=== PATIENT | female | born 1950 | race Caucasian/White ===

== ENCOUNTER 2016-09-23 14:37 | Emergency (ER) | payer OTHER ==
[2016-09-23 15:01] VITALS: BP 149/99; PULSE 103; TEMP 99.2; BMI 28.3
[2016-09-23] MEDS ORDERED: ONDANSETRON 4 MG/2 ML VIAL IVPB ONE (15:05)
[2016-09-23] MEDS ORDERED: ACETAMINOPHEN 1000 MG/100 ML VIAL (NON FORMULARY) IVPB ONE (15:06)
--- NOTE | 2016-09-23 15:07 | PDOC ---
History of Present Illness - General History Source: Patient Exam Limitations: No Limitations <Malachi Muro - Last Filed: 09/23/16 15:17> - History of Present Illness Initial Comments: 09/23/16 15:16 General History Source: Patient Exam Limitations: No Limitations - History of Present Illness Initial Comments: 09/23/16 15:13 The patient is a 66 year old female with a significant past medical history of Asthma, HTN, HLD, sinus polyps, who presents to the ED with fever, nonproductive cough, runny nose, nausea, vomiting. headache, and muscle aches. Patient states her symptoms first began yesterday evening. Patient denies diarrhea, hematochezia. She denies blood in the vomit. Patient denies dysuria, frequency, urgency. Patient denies any sick contacts. Patient has not had the flu shot this year. Patient was put on sinus antibiotics on September 17 by her PCP. She has only taken two doses so far, with the last one being yesterday, and does not think that her symptoms are related to this Remainder of the review of systems is negative <Malachi Muro - Last Filed: 09/23/16 15:14> <Margareth Polo - Last Filed: 09/23/16 18:13> - General Chief Complaint: Nausea/Vomiting Stated Complaint: VOMITING Time Seen by Provider: 09/23/16 14:51 Past History <Malachi Muro - Last Filed: 09/23/16 15:17> - Past Medical History Asthma: Yes HTN: Yes (BORDERLINE) Hypercholesterolemia: Yes (BORDERLINE) - Surgical History Cholecystectomy: Yes - Psycho/Social/Smoking Cessation Hx Anxiety: No Suicidal Ideation: No Smoking Status: No Smoking History: Never smoked Have you smoked in the past 12 months: No Number of Cigarettes Smoked Daily: 0 Information on smoking cessation initiated: No Hx Alcohol Use: No Drug/Substance Use Hx: No <Margareth Polo - Last Filed: 09/23/16 18:13> - Past Medical History Allergies/Adverse Reactions: Allergies Allergy/AdvReac Type Severity Reaction Status Date / Time No Known Allergies Allergy Verified 09/23/16 14:52 Home Medications: Ambulatory Orders Doxycycline Hyclate 100 mg PO DAILY 09/23/16 Ibuprofen [Advil -] 400 mg PO PRN PRN 09/23/16 Metformin HCl [Metformin HCl ER] 500 mg PO BID 09/23/16 Ondansetron [Zofran Odt -] 4 mg SL TID PRN #14 od.tablet 09/23/16 Review of Systems - Review of Systems Able to Perform ROS?: Yes Comments:: 09/23/16 15:14 12 point review of systems is as per history of present illness and otherwise negative <Malachi Muro - Last Filed: 09/23/16 15:17> *Physical Exam - Vital Signs Last Vital Signs Temp Pulse Resp BP Pulse Ox 99.2 F 103 H 18 149/99 96 09/23/16 14:38 09/23/16 14:38 09/23/16 14:38 09/23/16 14:38 09/23/16 14:38 <Malachi Muro - Last Filed: 09/23/16 15:17> - Vital Signs Last Vital Signs Temp Pulse Resp BP Pulse Ox 99.2 F 103 H 18 149/99 96 09/23/16 14:38 09/23/16 14:38 09/23/16 14:38 09/23/16 14:38 09/23/16 14:38 - Physical Exam Comments: 09/23/16 15:18 Physical exam Last Vital Signs Temp Pulse Resp BP Pulse Ox 99.2 F 103 H 18 149/99 96 09/23/16 14:38 09/23/16 14:38 09/23/16 14:38 09/23/16 14:38 09/23/16 14:38 GENERAL: The patient is awake, alert, and fully oriented, and in no apparent distress. HEAD: Normal with no signs of trauma. EYES: sclera anicteric, conjunctiva are normal. ENT: There is mild right maxillary sinus tenderness Patient has a runny nose with clear nasal discharge, throat is mildly erythematous without exudate. NECK: Normal range of motion, supple without lymphadenopathy, LUNGS: Breath sounds equal, clear to auscultation bilaterally. No wheezes, and no crackles. HEART: Regular rate and rhythm, normal S1 and S2 without murmur, rub or gallop. ABDOMEN: Soft, nontender, normoactive bowel sounds. No guarding, no rebound. No masses appreciated. There is mild upper midepigastric tenderness to palpation without guarding or rebound No other abdominal tenderness is noted There is no hepatosplenomegaly EXTREMITIES: Normal range of motion, no edema. No clubbing or cyanosis. No cords, erythema, or tenderness. NEUROLOGICAL: Cranial nerves II through XII grossly intact. Normal speech, normal gait. PSYCH: Normal mood, normal affect. SKIN: Warm, Dry, normal turgor, no rashes or lesions noted. <Margareth Polo - Last Filed: 09/23/16 18:13> ED Treatment Course - LABORATORY CBC & Chemistry Diagram: 09/23/16 15:21 09/23/16 15:21 <Margareth Polo - Last Filed: 09/23/16 18:13> Medical Decision Making - Medical Decision Making 09/23/16 15:21 66-year-old female with an influenza-like illness, with nausea vomiting, myalgias, low-grade fever, sore throat, nonproductive cough, and runny nose She also does have a history of sinus polyps, and was put on doxycycline on by her primary care doctor, but is not been taking it, and is only taken 2 doses over the past week She did not have the flu shot this year Will hydrate, control symptoms and reevaluate 09/23/16 18:08 Laboratory Results - last 24 hr 09/23/16 09/23/16 09/23/16 15:21 15:21 15:21 WBC 6.1 RBC 5.07 Hgb 14.2 Hct 42.0 MCV 82.9 MCHC 33.7 RDW 12.8 Plt Count 116 L MPV 9.5 Sodium 133 L Potassium 3.8 Chloride 101 Carbon Dioxide 24 Anion Gap 8 BUN 17 Creatinine 0.8 Creat Clearance w eGFR > 60 Random Glucose 186 H Calcium 9.3 Magnesium 1.7 L Total Bilirubin 0.9 AST 39 ALT 32 Alkaline Phosphatase 93 H Total Protein 7.3 Albumin 4.3 Lipase Urine Color Yellow Urine Appearance Clear Urine pH 5.0 Ur Specific [place] >= 1.030 H Urine Protein 2+ H Urine Glucose (UA) Negative Urine Ketones Trace Urine Blood Trace-intact Urine Nitrite Negative Urine Bilirubin Negative Urine Urobilinogen 0.2 e.u/dl Ur Leukocyte Esterase Negative Urine RBC 2-5 Urine WBC 1-3 Ur Epithelial Cells Few Amorphous Urates Few Urine Bacteria Few 09/23/16 15:21 WBC RBC Hgb Hct MCV MCHC RDW Plt Count MPV Sodium Potassium Chloride Carbon Dioxide Anion Gap BUN Creatinine Creat Clearance w eGFR Random Glucose Calcium Magnesium Total Bilirubin AST ALT Alkaline Phosphatase Total Protein Albumin Lipase 25 Urine Color Urine Appearance Urine pH Ur Specific [place] Urine Protein Urine Glucose (UA) Urine Ketones Urine Blood Urine Nitrite Urine Bilirubin Urine Urobilinogen Ur Leukocyte Esterase Urine RBC Urine WBC Ur Epithelial Cells Amorphous Urates Urine Bacteria Influenza A and B- negative Patient feeling much better after 2 L of normal saline and meds Tolerating clear liquids and crackers Magnesium minimally low-will replete orally by eating <Margareth Polo - Last Filed: 09/23/16 18:13> *DC/Admit/Observation/Transfer - Attestations Scribe Attestion: 09/23/16 15:14 Documentation prepared by Malachi Muro, acting as medical data analyst for Margareth Polo MD. <Malachi Muro - Last Filed: 09/23/16 15:17> <Margareth Polo - Last Filed: 09/23/16 18:13> Diagnosis at time of Disposition: Influenza-like illness, Vomiting - Discharge Dispostion Disposition: HOME Condition at time of disposition: Improved - Patient Instructions Printed Discharge Instructions: DI for Vomiting -- Adult Additional Instructions: Increase fluid intake Clear liquids for the next 24 hours-Pedialyte, Gatorade, broth, water ice, tea, increase fluid intake Then gradually increase diet as tolerated Zofran if needed for nausea and vomiting-one tablet under your tongue every 6-8 hours Tylenol or Motrin for discomfort Followup with your primary care physician in 24-48 hours Return immediately if you worsen in any way Take your medications as directed
[2016-09-23] MEDS ORDERED: SODIUM CHLORIDE 1,000 ML IV SCH ×2 (15:15→16:45)
[2016-09-23] MEDS ORDERED: ONDANSETRON 4 MG/2 ML VIAL ONE (15:26)
[2016-09-23] MEDS ORDERED: ACETAMINOPHEN INJECTION 100 ML IVPB ONE (15:26)
[2016-09-23 16:25] LABS: MCH 27.9 pg (25.7-33.7); MCHC 33.7 g/dl (32.0-36.0); MEAN CELL VOLUME 82.9 fl (80-96); MEAN PLT VOLUME 9.5 fl (7.5-11.1); PLATELET COUNT 116 K/MM3 (134-434); RDW 12.8 % (11.6-15.6); WHITE BLOOD COUNT 6.1 K/mm3 (4.0-10.0)
[2016-09-23 16:28] LABS: URINE APPEARANCE Clear; URINE BILIRUBIN Negative (NEGATIVE); URINE BLOOD Trace-intact (NEGATIVE); URINE GLUCOSE (UA) Negative (NEGATIVE); URINE KETONE Trace (NEGATIVE); URINE LEUK ESTERASE Negative (NEGATIVE); URINE NITRITE Negative (NEGATIVE); URINE UROBILINOGEN 0.2 E.U/dl (0.2-1.0)
[2016-09-23 16:29] LABS: URINE COLOR YELLOW; URINE PROTEIN 2+ (NEGATIVE)
[2016-09-23 16:41] LABS: ALBUMIN 4.3 g/dl (3.5-5.0); ALK PHOS 93 U/L (32-92); ANION GAP 8 (8-16); BILIRUBIN,TOTAL 0.9 mg/dl (0.2-1.0); CALCIUM 9.3 mg/dl (8.4-10.2); CO2 24 mmol/L (22-28); CREATININE 0.8 mg/dl (0.6-1.3); GLUCOSE,RANDOM 186 mg/dl (74-106); MAGNESIUM 1.7 mg/dL (1.8-2.4); SGOT/AST 39 U/L (10-42); SGPT/ALT 32 U/L (10-40); TOT PROT 7.3 g/dl (6.4-8.3)
[2016-09-23 16:42] LABS: URINE BACTERIA FEW /hpf (NEGATIVE)
== END 2016-09-23 18:18 | disposition home or self-care (01) ==
LOC: FER 14:37
PROC: 3E033NZ Introduction of Analgesics, Hypnotics, Sedatives into Peripheral Vein, Percutaneous Approach (ICD-10-PCS; principal; 2016-09-23)
PROC: 3E033GC Introduction of Other Therapeutic Substance into Peripheral Vein, Percutaneous Approach (ICD-10-PCS; 2016-09-23)
DX: J11.1 Influenza due to unidentified influenza virus with other respiratory manifestations (principal); R11.10 Vomiting, unspecified
CPT/HCPCS: 36415; 80053; 81003; 81015; 83690; 83735; 85027; 87804; 99283-25

== ENCOUNTER 2018-05-19 10:57 | Emergency (ER) | payer OTHER ==
[2018-05-19 11:03] VITALS: BP 164/84; PULSE 95; TEMP 98.4; BMI 27.8
[2018-05-19] MEDS ORDERED: ALBUTEROL SO4 2.5/IPRATROPIUM 0.5 INH SOL 3 ML VIAL.NEB. NEB ONE ×4 (11:16→11:57)
--- NOTE | 2018-05-19 11:17 | PDOC ---
History of Present Illness - General Chief Complaint: Respiratory Stated Complaint: COUGH & COLD SX Time Seen by Provider: 05/19/18 11:06 History Source: Patient (Patient walked in along with her daughter) Past History - Travel Traveled outside of the country in the last 30 days: No Close contact w/someone who was outside of country & ill: No - Past Medical History Allergies/Adverse Reactions: Allergies Allergy/AdvReac Type Severity Reaction Status Date / Time No Known Allergies Allergy Verified 05/19/18 10:59 Home Medications: Ambulatory Orders Metformin HCl [Metformin HCl ER] 500 mg PO BID 09/23/16 Azithromycin 250 mg PO ASDIR 05/19/18 Guaifenesin Dm [Robitussin Dm -] 10 ml PO Q4H PRN 05/19/18 Prednisone 10 mg PO DAILY #30 tab.ds.pk 05/19/18 Asthma: Yes COPD: No Diabetes: Yes HTN: Yes (BORDERLINE) Hypercholesterolemia: Yes (BORDERLINE) - Surgical History Cholecystectomy: Yes - Suicide/Smoking/Psychosocial Hx Smoking Status: No Smoking History: Never smoked Have you smoked in the past 12 months: No Number of Cigarettes Smoked Daily: 0 Information on smoking cessation initiated: No Hx Alcohol Use: No Drug/Substance Use Hx: No *Physical Exam - Vital Signs Last Vital Signs Temp Pulse Resp BP Pulse Ox 98.4 F 95 H 18 164/84 97 05/19/18 10:57 05/19/18 10:57 05/19/18 10:57 05/19/18 10:57 05/19/18 10:57 *DC/Admit/Observation/Transfer Diagnosis at time of Disposition: Asthma attack Qualifiers: Asthma severity: moderate Asthma persistence: persistent Qualified Code(s): J45.41 - Moderate persistent asthma with (acute) exacerbation - Discharge Dispostion Disposition: HOME Condition at time of disposition: Improved Decision to Admit order: No - Prescriptions Prescriptions: Prednisone 10 mg PO DAILY #30 tab.ds.pk - Referrals - Patient Instructions Printed Discharge Instructions: DI for Asthma -- Adult Additional Instructions: Fluids Inhalation therapy as needed Humidifier in the bedroom Take medication as prescribed - Post Discharge Activity
[2018-05-19] MEDS ORDERED: predniSONE 20 MG TABLET (UD) PO ONE (11:55)
[2018-05-19] MEDS ORDERED: predniSONE 20 MG TABLET (UD) ONE (11:56)
[2018-05-19] MEDS ORDERED: PRESCRIPTION PAD 1 EACH EACH NR ONE (12:27)
== END 2018-05-19 12:25 | disposition home or self-care (01) ==
LOC: FER 10:57
PROC: 3E0F7GC Introduction of Other Therapeutic Substance into Respiratory Tract, Via Natural or Artificial Opening (ICD-10-PCS; principal; 2018-05-19)
DX: J45.41 Moderate persistent asthma with (acute) exacerbation (principal); E11.9 Type 2 diabetes mellitus without complications; Z79.84 Long term (current) use of oral hypoglycemic drugs
CPT/HCPCS: 71046-TC-FY; 99283-25

== ENCOUNTER → 2019-03-02 | Emergency (ER) | payer OTHER, BC ==
[~2019-03-02] MED LIST: IBUPROFEN 600 MG TABLET (FP) PO ONE
[2019-03-02 13:55] VITALS: BP 142/81; PULSE 79; TEMP 98.4; BMI 27.2
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
== END | disposition home or self-care (01) ==
LOC: FER 13:41
DX: S20.219A Contusion of unspecified front wall of thorax, initial encounter (principal); V43.52XA Car driver injured in collision with other type car in traffic accident, initial encounter; Y93.89 Activity, other specified; Y92.410 Unspecified street and highway as the place of occurrence of the external cause; I10 Essential (primary) hypertension
CPT/HCPCS: 71101-TC-LT-FY; 71250-TC; 99283-25

== ENCOUNTER 2019-09-11 13:09 | Emergency (ER) | payer OTHER ==
[2019-09-11 13:23] VITALS: TEMP 97.8; BMI 27.8
--- NOTE | 2019-09-11 13:57 | PDOC ---
History of Present Illness - General Chief Complaint: Pain Stated Complaint: ABD. PAIN Time Seen by Provider: 09/11/19 13:55 History Source: Patient Exam Limitations: No Limitations - History of Present Illness Initial Comments: 83-year-old female with past medical history of hypertension, hyperlipidemia, diabetes, asthma, cholecystectomy, two sections presented to the emergency department for epigastric pain for four days. Patient reported her pain is intermittent, radiates around her left side, aggravated by eating, no alleviating factors. She reported some loose stools, but denied billy watery diarrhea. She admitted to nausea. She denied chest pain, shortness of breath, vomiting, lightheadedness, syncope, fever, abdominal distention, dysuria, blood in stool. Pt reported her son after he received IV contrast, so she does not want to receive it. ROS General: denied fever, chills, generalized weakness. HEENT: denied sore throat, rhinorrhea, ear pain. Cardiovascular: denied chest pain, palpitations, syncope, diaphoresis. Respiratory: denied shortness of breath, cough, sputum production, hemoptysis. Gastrointestinal: admitted to abdominal pain, nausea. denied vomiting, diarrhea, constipation, blood in stool. Genitourinary: denied dysuria, increased urinary frequency, hematuria, urinary incontinence, flank pain. Back: denied back pain. Musculoskeletal: denied joint pain, muscle pain, joint swelling. Neurological: denied headache, dizziness, numbness, tingling, weakness. Integumentary: denied rash, laceration, abrasion. Hematologic/Lymphatic: denied bruising or bleeding. PE Constitutional: Well-nourished, Well-developed, appearing stated age. HEENT: head is normocephalic, atraumatic. EOMI. PERRLA. Neck: supple. Full ROM. Cardiovascular: regular heart rhythm. Normal S1 and S2. no murmurs. no pericardial friction rub. Respiratory: clear to auscultation bilaterally. no crackles, rhonchi or wheezing. no stridor. Gastrointestinal: soft, flat. tender to epigastrium/LUQ. phan negative. normal bowel sounds. no rebound, guarding, or masses. Extremities: peripheral pulses intact and equal. no lower extremity edema noted. Neurological: CN 2-12 grossly intact. moves all four extremities. Psych: awake, alert, oriented x3. follows commands. answers questions appropriately. Past History - Past Medical History Allergies/Adverse Reactions: Allergies Allergy/AdvReac Type Severity Reaction Status Date / Time No Known Allergies Allergy Verified 03/02/19 13:43 Home Medications: Ambulatory Orders metFORMIN HCL [Metformin HCl ER] 500 mg PO BID 09/23/16 Acetaminophen [Tylenol -] 1,000 mg PO PRN PRN 03/02/19 Albuterol Sulfate Inhaler - [Ventolin Hfa Inhaler -] 1 - 2 inh PO PRN PRN 03/02/19 Ibuprofen [Motrin -] 400 mg PO TID PRN #90 tablet MDD 3 03/02/19 Cephalexin Monohydrate [Keflex -] 500 mg PO BID 7 Days #14 capsule 09/11/19 Famotidine [Pepcid -] 20 mg PO BID #28 tablet 09/11/19 Ondansetron [Zofran Odt -] 4 mg SL TID #9 od.tablet 09/11/19 - Psycho Social/Smoking Cessation Hx Smoking Status: No Smoking History: Never smoked Have you smoked in the past 12 months: No Number of Cigarettes Smoked Daily: 0 Information on smoking cessation initiated: No Hx Alcohol Use: No Drug/Substance Use Hx: No *Physical Exam - Vital Signs Last Vital Signs Temp Pulse Resp BP Pulse Ox 97.8 F 84 17 121/67 98 09/11/19 13:20 09/11/19 13:20 09/11/19 13:20 09/11/19 13:20 09/11/19 13:20 ED Treatment Course - LABORATORY CBC & Chemistry Diagram: 09/11/19 14:10 09/11/19 14:10 Medical Decision Making - Medical Decision Making 69 year old female with above PMH presented to ED for epigastric pain x4 days. Initial Vital Signs Temp Pulse Resp BP Pulse Ox 97.8 F 84 17 121/67 98 09/11/19 13:20 09/11/19 13:20 09/11/19 13:20 09/11/19 13:20 09/11/19 13:20 Afebrile. No tachycardia. No tachypnea. No hypotension. No hypoxia on room air. EKG performed at 1635: rate 81, regular rhythm, normal axis, normal intervals, no acute ST changes. 09/11/19 14:37 Pt refused maalox, reported it gives her diarrhea. 09/11/19 16:15 Laboratory Last Values WBC 3.9 K/mm3 (4.0-10.0) L 09/11/19 14:10 RBC 4.84 M/mm3 (3.60-5.2) 09/11/19 14:10 Hgb 13.5 GM/dL (10.7-15.3) 09/11/19 14:10 Hct 40.3 % (32.4-45.2) 09/11/19 14:10 MCV 83.1 fl (80-96) 09/11/19 14:10 MCH 27.9 pg (25.7-33.7) 09/11/19 14:10 MCHC 33.6 g/dl (32.0-36.0) 09/11/19 14:10 RDW 13.6 % (11.6-15.6) 09/11/19 14:10 Plt Count 76 K/MM3 (134-434) L 09/11/19 14:10 MPV 9.0 fl (7.5-11.1) 09/11/19 14:10 Absolute Neuts (auto) 2.3 K/mm3 (1.5-8.0) 09/11/19 14:10 Neutrophils % 59.4 % (42.8-82.8) 09/11/19 14:10 Lymphocytes % 18.2 % (8-40) 09/11/19 14:10 Monocytes % 12.7 % (3.8-10.2) H 09/11/19 14:10 Eosinophils % 8.9 % (0-4.5) H 09/11/19 14:10 Basophils % 0.8 % (0-2.0) 09/11/19 14:10 Nucleated RBC % 0 % (0-0) 09/11/19 14:10 PT with INR 11.60 SEC (9.7-13.0) 09/11/19 14:10 INR 0.98 (0.83-1.09) 09/11/19 14:10 PTT (Actin FS) 33.3 SECONDS (25.2-36.5) 09/11/19 14:10 Sodium 140 mmol/L (136-145) 09/11/19 14:10 Potassium 3.9 mmol/L (3.5-5.1) 09/11/19 14:10 Chloride 108 mmol/L (98-107) H 09/11/19 14:10 Carbon Dioxide 26 mmol/L (21-32) 09/11/19 14:10 Anion Gap 6 MMOL/L (8-16) L 09/11/19 14:10 BUN 17.9 mg/dL (7-18) 09/11/19 14:10 Creatinine 1.0 mg/dL (0.55-1.3) 09/11/19 14:10 Est GFR (CKD-EPI)AfAm 66.10 09/11/19 14:10 Est GFR (CKD-EPI)NonAf 57.03 09/11/19 14:10 Random Glucose 165 mg/dL (74-106) H 09/11/19 14:10 Lactic Acid 1.2 mmol/L (0.4-2.0) 09/11/19 14:10 Calcium 8.9 mg/dL (8.5-10.1) 09/11/19 14:10 Magnesium 2.1 mg/dL (1.8-2.4) 09/11/19 14:10 Total Bilirubin 0.4 mg/dL (0.2-1) 09/11/19 14:10 AST 31 U/L (15-37) 09/11/19 14:10 ALT 34 U/L (13-61) 09/11/19 14:10 Alkaline Phosphatase 98 U/L (45-117) 09/11/19 14:10 Troponin I < 0.02 ng/ml (0.00-0.05) 09/11/19 14:10 Total Protein 6.6 g/dl (6.4-8.2) 09/11/19 14:10 Albumin 3.3 g/dl (3.4-5.0) L 09/11/19 14:10 Lipase 164 U/L (73-393) 09/11/19 14:10 Urine Color Dk yellow 09/11/19 14:45 Urine Appearance Cloudy 09/11/19 14:45 Urine pH 5.0 (5.0-8.0) 09/11/19 14:45 Ur Specific [place] 1.032 (1.010-1.035) 09/11/19 14:45 Urine Protein 2+ (NEGATIVE) H 09/11/19 14:45 Urine Glucose (UA) Negative (NEGATIVE) 09/11/19 14:45 Urine Ketones Trace (NEGATIVE) H 09/11/19 14:45 Urine Blood Negative (NEGATIVE) 09/11/19 14:45 Urine Nitrite Negative (NEGATIVE) 09/11/19 14:45 Urine Bilirubin Negative (NEGATIVE) 09/11/19 14:45 Urine Urobilinogen 0.2 mg/dL (0.2-1.0) 09/11/19 14:45 Ur Leukocyte Esterase 1+ (NEGATIVE) H 09/11/19 14:45 Urine WBC (Auto) 13 /hpf (0-5) 09/11/19 14:45 Urine RBC (Auto) 1 /hpf (0-4) 09/11/19 14:45 Urine Casts (Auto) 22 /lpf (0-8) 09/11/19 14:45 U Pathogenic Cast Auto None /lpf (NEGATIVE) 09/11/19 14:45 U Epithel Cells (Auto) 9.8 /HPF (0-5/HPF) 09/11/19 14:45 Urine Bacteria (Auto) 24.6 /hpf (NEGATIVE) 09/11/19 14:45 Blood Type O POSITIVE 09/11/19 14:10 Antibody Screen Negative 09/11/19 14:10 No leukocytosis. No anemia. No CRISTÓBAL. No transaminitis. Troponin wnl. Lipase wnl. UA positive for UTI. -Medications ordered: Keflex 500 mg PO once Pt reported improvement of symptoms, requesting discharge. Pt prescribed pepcid. Pt advised to F/U with PCP and GI. Results explained to patient and family. Pt given GI referral. Discharge - Discharge Information Problems reviewed: Yes Clinical Impression/Diagnosis: UTI (urinary tract infection), Epigastric pain Condition: Improved Disposition: HOME - Admission No - Additional Discharge Information Prescriptions: Cephalexin Monohydrate [Keflex -] 500 mg PO BID 7 Days #14 capsule Famotidine [Pepcid -] 20 mg PO BID #28 tablet Ondansetron [Zofran Odt -] 4 mg SL TID #9 od.tablet - Follow up/Referral Referrals: Woo White MD [Staff Physician] - Jean Price DO [Staff Physician] - - Patient Discharge Instructions Patient Printed Discharge Instructions: DI for Urinary Tract Infection (UTI), DI for Gastritis, GERD Diet Additional Instructions: Follow up with your primary care doctor within 3 days regarding your ER visit. Bring all paperwork given to you today to your appointment. Your care is not complete until you follow up. Bring all medication bottles you are taking. Follow up with a pin pusher within 3 days regarding your ER visit. Bring all paperwork given to you today to your appointment. Your care is not complete until you follow up. Bring all medication bottles you are taking. I have provided you with a referral. I have prescribed you Pepcid for increased stomach acid. Take as advised on label. I have prescribed you Zofran for nausea. Take as needed every 8 hours for nausea/vomiting. It dissolves under the tongue. I have prescribed you Keflex for your urinary tract infection. Take as advised on label. Finish all pills, do not stop early. Return to the Emergency Department for increasing pain, chest pain, shortness of breath, vomiting, lightheadedness, fever, or any other new, worsening or concerning symptoms. - Post Discharge Activity
[2019-09-11] MEDS ORDERED: SODIUM CHLORIDE 1,000 ML IV STA (14:13)
[2019-09-11] MEDS ORDERED: ONDANSETRON 4 MG/2 ML VIAL IVPUSH ONE (14:13)
[2019-09-11] MEDS ORDERED: MAG HYDROX/AL HYDROX/SIMETH 30 ML UNIT-DOSE CUP PO ONE (14:13)
[2019-09-11] MEDS ORDERED: FAMOTIDINE 20 MG/50 ML IVPB 20 MG/50 ML MG IVPB ONE ×2 (14:13→14:31)
[2019-09-11 14:29] LABS: BASO % 0.8 % (0-2.0); EOS % 8.9 % (0-4.5); HEMATOCRIT 40.3 % (32.4-45.2); HEMOGLOBIN 13.5 GM/dL (10.7-15.3); LYMPH % 18.2 % (8-40); MCH 27.9 pg (25.7-33.7); MCHC 33.6 g/dl (32.0-36.0); MEAN CELL VOLUME 83.1 fl (80-96); MONO % 12.7 % (3.8-10.2); NEUT % 59.4 % (42.8-82.8); PLATELET COUNT 76 K/MM3 (134-434); RBC 4.84 M/mm3 (3.60-5.2); RDW 13.6 % (11.6-15.6); WHITE BLOOD COUNT 3.9 K/mm3 (4.0-10.0)
[2019-09-11] MEDS ORDERED: ONDANSETRON 4 MG/2 ML VIAL ONE (14:31)
[2019-09-11] MEDS ORDERED: MAG HYDROX/AL HYDROX/SIMETH 30 ML UNIT-DOSE CUP ONE (14:31)
[2019-09-11 14:42] LABS: INR 0.98 (0.83-1.09); PROTHROMBIN TIME (PATIENT) 11.6 SEC (9.7-13.0)
[2019-09-11 14:45] LABS: ACTIVATED PTT 33.3 SECONDS (25.2-36.5)
[2019-09-11 14:57] LABS: ALBUMIN 3.3 g/dl (3.4-5.0); ALK PHOS 98 U/L (45-117); ANION GAP 6 MMOL/L (8-16); BILIRUBIN,TOTAL 0.4 mg/dL (0.2-1); BLOOD UREA NITROGEN 17.9 mg/dL (7-18); CALCIUM 8.9 mg/dL (8.5-10.1); CHLORIDE 108 mmol/L (98-107); CO2 26 mmol/L (21-32); GLUCOSE,RANDOM 165 mg/dL (74-106); LIPASE 164 U/L (73-393); MAGNESIUM 2.1 mg/dL (1.8-2.4); POTASSIUM 3.9 mmol/L (3.5-5.1); SGOT/AST 31 U/L (15-37); SGPT/ALT 34 U/L (13-61); SODIUM 140 mmol/L (136-145); TOT PROT 6.6 g/dl (6.4-8.2)
[2019-09-11 15:16] LABS: EPI CELLS 9.8 /HPF (0-5/HPF); HYALINE CASTS 22 /lpf (0-8); URINE APPEARANCE CLOUDY; URINE BACTERIA 24.6 /hpf (NEGATIVE); URINE BILIRUBIN NEGATIVE (NEGATIVE); URINE COLOR DK YELLOW; URINE GLUCOSE (UA) NEGATIVE (NEGATIVE); URINE KETONE TRACE (NEGATIVE); URINE LEUK ESTERASE 1+ (NEGATIVE); URINE NITRITE NEGATIVE (NEGATIVE); URINE PROTEIN 2+ (NEGATIVE); URINE RBC 1 /hpf (0-4); URINE UROBILINOGEN 0.2 mg/dL (0.2-1.0); URINE WBC 13 /hpf (0-5)
--- NOTE | 2019-09-11 15:19 | PDOC ---
Documentation entered by Maurilio Cain SCRIBE, acting as scribe for Robina Franklin MD. Robina Franklin MD: This documentation has been prepared by the Ant grande Nirvannie, SCRIBE, under my direction and personally reviewed by me in its entirety. I confirm that the documentation accurately reflects all work, treatment, procedures, and medical decision making performed by me. Attending Attestation - Resident Resident Name: Wade Murry - ED Attending Attestation I have performed the following: I have examined & evaluated the patient, The case was reviewed & discussed with the resident, I agree w/resident's findings & plan, Exceptions are as noted - HPI HPI: 09/11/19 15:50 The patient is a 69 year old female, with a significant past medical history of hypertension, hyperlipidemia, diabetes, asthma, who presents to the emergency department with 4 days of LUQ abdominal pain with associated nausea. She states it is worse with meals. She recently completed a course of prednisone for bronchitis/asthma exacerbation. Allergies: NKDA - Physicial Exam PE: GENERAL: Awake, alert, and fully oriented, in no acute distress. Well-appearing HEAD: No signs of trauma EYES: PERRLA, EOMI, sclera anicteric, conjunctiva clear ENT: Auricles normal inspection, hearing grossly normal, nares patent, oropharynx clear without exudates. Moist mucosa NECK: Normal ROM, supple, no lymphadenopathy, JVD, or masses LUNGS: Breath sounds equal, clear to auscultation bilaterally. No wheezes, and no crackles HEART: Regular rate and rhythm, normal S1 and S2, no murmurs, rubs or gallops ABDOMEN: Soft, +epigastric/LUQ tenderness, normoactive bowel sounds. No guarding, no rebound. No masses EXTREMITIES: Normal range of motion, no edema. No clubbing or cyanosis. No cords, erythema, or tenderness NEUROLOGICAL: Cranial nerves II through XII grossly intact. Normal speech, normal gait. Motor and sensation intact SKIN: Warm, dry, normal turgor, no rashes or lesions noted. - Medical Decision Making Pt with upper abd tenderness, however, normal labs. No elevation in bilirubin. Symptoms likely related to GERD with recent steroid use. No signs of acute abdomen. Stable for DC home with outpatient f/u.
[2019-09-11] MEDS ORDERED: CEPHALEXIN MONOHYDRATE 500 MG CAPSULE (UD) PO ONE (16:14)
[2019-09-11] MEDS ORDERED: CEPHALEXIN MONOHYDRATE 500 MG CAPSULE (UD) ONE (16:23)
[2019-09-11 16:58] VITALS: BP 140/81; PULSE 92
--- NOTE | 2019-09-12 10:29 | EKG ---
Test Reason : Blood Pressure : / mmHG Vent. Rate : 081 BPM Atrial Rate : 081 BPM P-R Int : 118 ms QRS Dur : 082 ms QT Int : 384 ms P-R-T Axes : 053 006 023 degrees QTc Int : 446 ms NORMAL SINUS RHYTHM POSSIBLE ANTERIOR INFARCT , AGE UNDETERMINED ABNORMAL ECG NO PREVIOUS ECGS AVAILABLE Confirmed by Wade Donohue MD ([id number]) on 09/12/2019 10:29:33 AM Referred By: Confirmed By:Wade Donohue MD
== END 2019-09-11 16:58 | disposition home or self-care (01) ==
LOC: JER 13:09
PROC: 3E033GC Introduction of Other Therapeutic Substance into Peripheral Vein, Percutaneous Approach (ICD-10-PCS; principal; 2019-09-11)
DX: N39.0 Urinary tract infection, site not specified (principal); R10.13 Epigastric pain; I10 Essential (primary) hypertension; E78.5 Hyperlipidemia, unspecified; E11.9 Type 2 diabetes mellitus without complications; J45.909 Unspecified asthma, uncomplicated
CPT/HCPCS: 36415; 80053; 81003; 83605; 83690; 83735; 84484; 85025; 85610; 85730; 86850; 86900; 86901; 87086; 93005; 93010; 96365; 96375; 99284-25; J7030

== ENCOUNTER 2020-01-05 10:22 | Day surgery (SDC) | payer OTHER ==
--- NOTE | 2020-01-05 08:03 | HP ---
[facility] - Chief Complaint Chief Complaint: right shoulder pain - Past Medical History Allergies/Adverse Reactions: Allergies Allergy/AdvReac Type Severity Reaction Status Date / Time No Known Allergies Allergy Verified 12/30/19 15:21 - Current Medications Current Medications: Home Medications Medication Instructions Recorded metFORMIN HCL [Metformin HCl ER] 500 mg PO BID 09/23/16 Albuterol Sulfate Inhaler - 1 - 2 inh PO PRN PRN 03/02/19 [Ventolin Hfa Inhaler -] Satellite Physical Exam - Physical Examination General Appearance: Well Nourished, Well Developed, Alert & Oriented x3 ENT: Clear Lung: Normal air movement Extremities: Other (right shoulder- + ttp, decr rom, + empty can, + neer, + aldrich, nvi, MRI + rct) Neurological: Intact, Alert, Oriented Satellite Impression/Plan - Impression/Plan Impression: right shoulder rct Operative Procedure: right shoulder arthroscopy with RCR, SAD Date to be Performed: 01/05/20
[2020-01-05 11:03] VITALS: BP 170/77; PULSE 103; TEMP 98.2; BMI 27.4
== END 2020-01-05 11:30 | disposition home or self-care (01) ==
LOC: FASU 10:22
PROVIDERS: ATTEND Orthopaedic Surgery
PROC: 0LQ14ZZ Repair Right Shoulder Tendon, Percutaneous Endoscopic Approach (ICD-10-PCS; principal; 2020-01-05)
PROC: 0RNJ4ZZ Release Right Shoulder Joint, Percutaneous Endoscopic Approach (ICD-10-PCS; 2020-01-05)
DX: M75.101 Unspecified rotator cuff tear or rupture of right shoulder, not specified as traumatic (principal); Z53.09 Procedure and treatment not carried out because of other contraindication
CPT/HCPCS: 82962

== ENCOUNTER 2020-01-20 07:18 | Day surgery (SDC) | payer OTHER ==
[2020-01-19 17:42] VITALS: BMI 29.2
[2020-01-20] MEDS ORDERED: MIDAZOLAM HCL 2 MG/2 ML SINGLE DOSE VIAL ONE ×2 (07:41)
[2020-01-20] MEDS ORDERED: PROPOFOL 20 ML ONE ×2 (07:41→09:22)
--- NOTE | 2020-01-20 08:27 | HP ---
[facility] - Chief Complaint Chief Complaint: right shoulder pain - Past Medical History Allergies/Adverse Reactions: Allergies Allergy/AdvReac Type Severity Reaction Status Date / Time No Known Allergies Allergy Verified 01/20/20 08:04 - Current Medications Current Medications: Home Medications Medication Instructions Recorded metFORMIN HCL [Metformin HCl ER] 500 mg PO BID 09/23/16 Albuterol Sulfate Inhaler - 1 - 2 inh PO PRN PRN 03/02/19 [Ventolin Hfa Inhaler -] Satellite Physical Exam - Physical Examination Vital Signs: Vital Signs Period Temp Pulse Resp BP Sys/Montiel Pulse Ox Last 24 Hr 100 General Appearance: Well Nourished, Well Developed, Alert & Oriented x3 ENT: Clear Lung: Normal air movement Extremities: Other (right shoulder- + ttp, decr rom, + neer, + aldrich, + empty can, nvi, MRI + Rct) Neurological: Intact, Alert, Oriented Satellite Impression/Plan - Impression/Plan Impression: right shoulder rct Operative Procedure: right shoulder arthroscopy with RCR, SAD Date to be Performed: 01/20/20
[2020-01-20] MEDS ORDERED: ceFAZolin SODIUM 1 GM VIAL IVPB ONE (08:58)
--- NOTE | 2020-01-20 09:39 | OP ---
Operative Note - Note: Operative Date: 01/20/20 ([facility]) Pre-Operative Diagnosis: right shoulder rct Operation: right shoulder arthroscopy with RCR, SAD Post-Operative Diagnosis: Same as Pre-op Surgeon: Alber Mcgill Oncology Social Work: Mendel Mijares Anesthesiologist/ASSOCIATE PROFESSOR OF LAW: Abiodun Wakefield Anesthesia: General, Local Specimens Removed: shavings Estimated Blood Loss (mls): 5
[2020-01-20] MEDS ORDERED: ONDANSETRON 4 MG/2 ML VIAL IVPUSH PRN (09:52)
[2020-01-20] MEDS ORDERED: oxyCODONE HCL 5 MG TABLET PO PRN ×2 (09:52)
[2020-01-20] MEDS ORDERED: LACTATED RINGERS SOLUTION 1,000 ML IV SCH (10:00)
[2020-01-20 12:07] VITALS: BP 143/87; PULSE 98; TEMP 97.7
--- NOTE | 2020-01-21 09:51 | SPEC ---
DATE OF OPERATION: 01/20/2020 PREOPERATIVE DIAGNOSIS: Right rotator cuff tear. POSTOPERATIVE DIAGNOSIS: Right rotator cuff tear. PROCEDURE: Right shoulder arthroscopy, subacromial debridement, bursectomy, acromioplasty and arthroscopic right rotator cuff repair with SpeedBridge. SURGICAL ATTENDING: Alber Mcgill MD ASSOCIATE ACCOUNTANT: JELANI Sun ANESTHESIA: Regional and general. CLOSURE: A SpeedBridge for the rotator cuff and 3-0 nylon for skin. ESTIMATED BLOOD LOSS: Negligible. COMPLICATIONS: None. CONDITION: To the recovery room in stable condition. DESCRIPTION OF OPERATIVE PROCEDURE: The patient was taken to the operating room on January 20, 2020. General and regional anesthesia was administered by the anesthesiologist. IV Kefzol was administered prophylactically prior to the case. The patient was placed in the beach-chair position with all prominences well padded. The right shoulder area was prepped and draped in the usual sterile fashion. First, a diagnostic arthroscopy of the glenohumeral joint was made. Posterior portal was made 2 fingerbreadths below the acromion with a 15 blade followed by a blunt trocar. Circumferential exam of the glenohumeral joint revealed the following: Intact labrum circumferentially, intact glenoid and humeral head articular cartilage, intact biceps and biceps anchor, intact subscapularis through its insertion. Looking superiorly, there was a large rotator cuff tear. The fluid was drained from the shoulder, and the trocar was removed. The posterior trocar was redirected in the subacromial space. An accessory lateral and anterior portal were made with a 15 blade followed by a blunt trocar. The lateral portal was used as the working portal. Through this portal, an ArthroCare device was applied. This was used to debride the soft tissue in the subacromial aspect. The coracoacromial ligament was identified and detached off the anterior acromion and was visualized to drop inferiorly and was further debrided. The bone on the undersurface of the acromion was burred to the appropriate level giving appropriate height for the rotator cuff beneath. Looking inferiorly, there was a large rotator cuff tear, soft tissue encasing the rotator cuff, and the deltoid recess was debrided using ArthroCare device and the shaver. The bed on the greater tuberosity was burred to give a good bed for the double row SpeedBridge repair. A grasper was used to ensure that the rotator cuff was able to be reduced sufficiently to the greater tuberosity. The rotator cuff was freed on the bursal and the articular surface to allow more excursion of the tendon. Two anchors preloaded with FiberTape suture were placed on the articular margin, 1 more anteriorly, 1 more posteriorly. They were shuttled through the anterior portal with a grasper. Each limb was individually passed through the rotator cuff, 2 anteriorly and 2 posteriorly. One anterior limb and 1 posterior limb were delivered through the lateral portal. They were placed through the eyelet hole of the more lateral anchor, which was then malleted into place much more laterally, reducing the rotator cuff to the greater tuberosity. The swivel was then screwed into place. The sutures were then cut flush with the bone. Next, 1 anterior and 1 posterior limb that were remaining were shuttled from the anterior to the lateral portal. The sutures were placed through the eyelet hole of the anterior anchor, which was malleted on the anterior aspect of the greater tuberosity. After tensioning it, it was deployed the entire way and then screwed home giving an excellent reduction to the anterior portion of the rotator cuff. After the sutures were cut, the rotator cuff was probed and found to have good stability with excellent matting down of the rotator cuff to the greater tuberosity. The shoulder was taken through the range of motion and found to have good clearance on the undersurface of the acromion with good, solid repair. The shoulder was drained of the fluid. The portals were closed with 3-0 nylon suture. A sterile pressure dressing followed by a shoulder immobilizer was applied. The patient was awoken from anesthesia and transferred to recovery room in stable condition. No complications. Estimated blood loss negligible. Bull [id number]
--- NOTE | 2020-02-01 15:00 | PATH ---
Surgical Pathology Report Patient Name: MARIZOL BEATTY Med. Rec. #: [id number] /Age/Gender: 1950 (Age: 69) / F Account: [id number] Location: [facility] SURGICAL Taken: 01/20/2020 Received: 01/20/2020 Reported: 01/21/2020 Physicians: Alber Mcgill M.D. Specimen(s) Received RIGHT SHOULDER SHAVINGS Clinical History Right rotator cuff tear Final Diagnosis RIGHT SHOULDER SHAVINGS: FRAGMENTS OF SYNOVIAL TISSUE WITH FOCAL FIBROSIS. SEPARATE PORTIONS OF SKELETAL MUSCLE, BONE TISSUE WITH NO SIGNIFICANT PATHOLOGIC CHANGE. Electronically Signed Vanessa Car M.D. Gross Description Received in formalin, labeled "right shoulder shavings," is a 3.5 x 2.0 x 0.3 cm. aggregate of hickey-yellow soft tissue fragments. A claims representative portion is submitted in one cassette. /01/20/2020 saudi/01/20/2020
== END 2020-01-20 12:05 | disposition home or self-care (01) ==
LOC: JASU-SURG 07:18
PROVIDERS: ATTEND Orthopaedic Surgery
PROC: 0RNJ4ZZ Release Right Shoulder Joint, Percutaneous Endoscopic Approach (ICD-10-PCS; principal; 2020-01-20 09:30)
PROC: 0LQ14ZZ Repair Right Shoulder Tendon, Percutaneous Endoscopic Approach (ICD-10-PCS; 2020-01-20 09:30)
DX: M75.101 Unspecified rotator cuff tear or rupture of right shoulder, not specified as traumatic (principal); E11.9 Type 2 diabetes mellitus without complications; Z79.84 Long term (current) use of oral hypoglycemic drugs
CPT/HCPCS: 82962; 88304-TC; 94760

== ENCOUNTER 2020-01-22 20:33 | Emergency (ER) | payer OTHER ==
[2020-01-22 20:38] VITALS: BP 166/80; PULSE 86; TEMP 98; BMI 29.2
--- NOTE | 2020-01-22 20:38 | PDOC ---
Rapid Medical Evaluation Time Seen by Provider: 01/22/20 20:34 Medical Evaluation: Allergies Allergy/AdvReac Type Severity Reaction Status Date / Time No Known Allergies Allergy Verified 01/20/20 08:04 01/22/20 20:34 I have performed a brief in-person evaluation of this patient. CC: RUE swelling s/p rotator cuff repair PE: +2 radial pulse. +swelling to RUE. +ecchymosis over right deltoid Orders: nothing Patient will proceed to ED for further evaluation. Discharge Disposition - Diagnosis Swelling of right upper extremity - Referrals - Patient Instructions - Post Discharge Activity
--- NOTE | 2020-01-22 21:16 | PDOC ---
History of Present Illness - General Chief Complaint: Edema Stated Complaint: RT ARM SWOLLEN Time Seen by Provider: 01/22/20 20:34 History Source: Patient Exam Limitations: No Limitations - History of Present Illness Initial Comments: 01/22/20 21:08 69-year-old female accompanied by daughter with history of hypertension, hyperlipidemia, diabetes, asthma, [id number], status post right rotator cuff surgery by Dr. Mcgill 2 days ago presents complaining of right shoulder bruising and swelling. Also complaining of feeling nausea and dizziness after taking Percocet. Took 1 tablet of Percocet yesterday. Denies chest pain, shortness of breath, back pain, abdominal pain, fever, chills, leg pain, calf pain, urinary symptoms or any other complaints. Patient has a follow-up appointment scheduled with Dr. Mcgill next week January 28, 2020. ROS: as above PE: GENERAL: well-appearing, NAD HEAD: NCAT EYES: Pupils equal, round and reactive to light, sclera anicteric, conjunctiva clear ENT: pharynx: no erythema, no exudate, uvula midline NECK: supple CHEST: nontender RESP: clear, no w/r/r CARDIO: rrr, no m/g/r ABD: +BS, soft, nontender, non distended BACK: no midline spinal ttp, no CVAT EXTREMITIES: Surgical dressing in place, clean dry and intact, patient wearing shoulder sling, soft compartments to right upper extremity, moderate amount of ecchymosis noted, no warmth, no erythema or tenderness to palpation over right upper extremity, mild swelling noted to all digits of right hand, positive radial pulse, normal skin color NEUROLOGICAL: Normal speech, normal gait SKIN: Warm, Dry Is this a multiple visit Asthma Patient?: No Past History - Medical History Allergies/Adverse Reactions: Allergies Allergy/AdvReac Type Severity Reaction Status Date / Time No Known Allergies Allergy Verified 01/22/20 20:38 Home Medications: Ambulatory Orders metFORMIN HCL [Metformin ER Osmotic] 500 mg PO BID 09/23/16 Albuterol Sulfate Inhaler - [Ventolin HFA Inhaler -] 1 - 2 inh PO PRN PRN 03/02/19 Oxycodone HCl/Acetaminophen [Percocet 5-325 mg Tablet] 1 tab PO Q6H #20 tablet MDD 4 01/20/20 Acetaminophen with Codeine [Tylenol with Codeine #3 Tablet] 1 each PO Q6H #30 tablet MDD 6 01/21/20 Anemia: No Asthma: Yes Cancer: No Cardiac Disorders: No CVA: No COPD: No CHF: No Dementia: No Diabetes: Yes GI Disorders: No Disorders: No HTN: Yes (BORDERLINE) Hypercholesterolemia: Yes (BORDERLINE) Liver Disease: No Seizures: No Thyroid Disease: No - Surgical History Abdominal Surgery: No Appendectomy: No Cardiac Surgery: No Cholecystectomy: Yes Lung Surgery: No Neurologic Surgery: No Orthopedic Surgery: No - Psycho-Social/Smoking History Smoking Status: No Smoking History: Never smoked Have you smoked in the past 12 months: No Number of Cigarettes Smoked Daily: 0 - Substance Abuse Hx (Audit-C & DAST Scrn) How often the patient has a drink containing alcohol: Never Score: In Men: 4 or > Positive; In Women: 3 or > Positive: 0 Screen Result (Pos requires Nsg. Audit-10AR): Negative In the last yr the pt used illegal drug/Rx for NonMed reason: No Score: Yes response is considered Positive: 0 Screen Result (Positive result requires Nsg. DAST-10): Negative *Physical Exam - Vital Signs Last Vital Signs Temp Pulse Resp BP Pulse Ox 98 F 86 18 166/80 99 01/22/20 20:36 01/22/20 20:36 01/22/20 20:36 01/22/20 20:36 01/22/20 20:36 Medical Decision Making - Medical Decision Making 01/22/20 21:13 69-year-old female accompanied by daughter with history of hypertension, hyperlipidemia, diabetes, asthma, [id number], status post right rotator cuff surgery by Dr. Mcgill 2 days ago presents complaining of right shoulder bru ising and swelling. Also complaining of feeling nausea and dizziness after taking Percocet. Took 1 tablet of Percocet yesterday. Denies chest pain, shortness of breath, back pain, abdominal pain, fever, chills, leg pain, calf pain, urinary symptoms or any other complaints. Patient has a follow-up appointment scheduled with Dr. Mcgill next week January 28, 2020. Advised patient to stop taking Percocet given it causes her nausea and dizziness Patient will alternate between acetaminophen 975 mg and ibuprofen 400 mg every 4-6 hours as needed for pain Apply ice over the shoulder as needed Keep your appointment scheduled with Dr. Mcgill for next week Return to ED if you develop chest pain, shortness of breath, swelling to right arm, fever, chills, or any concerning symptoms Discharge - Discharge Information Problems reviewed: Yes Clinical Impression/Diagnosis: Swelling of right upper extremity Condition: Stable Disposition: HOME - Admission No - Follow up/Referral - Patient Discharge Instructions Additional Instructions: Alternate between acetaminophen 975 and ibuprofen 400 mg every 6 hours as needed for pain Apply ice over your shoulder several times a day for swelling and pain control Keep your appointment scheduled with Dr. Mcgill next week Return to ED if you develop fever, chills, worsening pain, worsening swelling or any concerning symptoms - Post Discharge Activity
== END 2020-01-22 21:21 | disposition home or self-care (01) ==
LOC: JERFT 20:33
DX: M79.89 Other specified soft tissue disorders (principal)
CPT/HCPCS: 99282-25

== ENCOUNTER 2021-01-05 12:35 | Emergency (ER) | payer OTHER ==
[2021-01-05 12:47] VITALS: BP 146/78; PULSE 89; BMI 21.6
[2021-01-05 13:17] VITALS: TEMP 98.6
[2021-01-05 14:26] LABS: ALBUMIN 3.3 g/dl (3.4-5.0); ALK PHOS 73 U/L (45-117); ANION GAP 10 MMOL/L (8-16); BILIRUBIN,TOTAL 0.4 mg/dl (0.2-1); CALCIUM 8.3 mg/dl (8.5-10); CHLORIDE 104 mmol/L (98-107); CO2 25 mmol/L (21-32); GLUCOSE,RANDOM 273 mg/dl (74-106); SGOT/AST 15 U/L (15-37); SGPT/ALT 15 U/L (13-61); SODIUM 139 mmol/L (136-145); TOT PROT 6.1 g/dl (6.4-8.2)
[2021-01-05 14:28] LABS: BASO % 0.9 % (0-2.0); MCH 28.1 pg (25.7-33.7)
[2021-01-05 14:30] LABS: EOS % 9.4 % (0-4.5); HEMATOCRIT 36.5 % (32.4-45.2); HEMOGLOBIN 12.2 GM/dl (10.7-15.3); LYMPH % 19.2 % (8-40); MCHC 33.3 g/dl (32.0-36.0); MEAN CELL VOLUME 84.3 fl (80-96); NEUT % 54.5 % (42.8-82.8); PLATELET COUNT 120 10^3/uL (134-434); RBC 4.33 M/mm3 (3.60-5.2); RDW 12.5 % (11.6-15.6); WHITE BLOOD COUNT 3.6 K/mm3 (4.0-10.8)
[2021-01-05 14:34] LABS: EPITHELIAL CELLS MODERATE /hpf
[2021-01-05] MEDS ORDERED: FAMOTIDINE 20 MG/50 ML IVPB 20 MG/50 ML MG IVPB ONE ×2 (14:34→14:39)
[2021-01-05 14:35] LABS: URINE HYALINE CAST 0-2 /lpf; URINE MUCUS 1+
[2021-01-05] MEDS ORDERED: MAG HYDROX/AL HYDROX/SIMETH 30 ML UNIT-DOSE CUP PO ONE (14:35)
[2021-01-05] MEDS ORDERED: MAG HYDROX/AL HYDROX/SIMETH 30 ML UNIT-DOSE CUP ONE (14:39)
[2021-01-05 14:45] LABS: LIPASE 259 U/L (73-393)
[2021-01-05] MEDS ORDERED: SODIUM CHLORIDE 1,000 ML IV STA (15:05)
== END 2021-01-05 17:50 | disposition home or self-care (01) ==
LOC: FER 12:35
PROC: 3E033NZ Introduction of Analgesics, Hypnotics, Sedatives into Peripheral Vein, Percutaneous Approach (ICD-10-PCS; principal; 2021-01-05)
PROC: 3E0337Z Introduction of Electrolytic and Water Balance Substance into Peripheral Vein, Percutaneous Approach (ICD-10-PCS; 2021-01-05)
DX: K57.92 Diverticulitis of intestine, part unspecified, without perforation or abscess without bleeding (principal)
CPT/HCPCS: 36415; 74176-TC; 80053; 81003; 81015; 83690; 84484; 85025; 87077; 87086; 87186; 93005; 99285-25

== ENCOUNTER 2021-07-04 12:41 | Emergency (ER) | payer OTHER ==
[2021-07-04 13:00] VITALS: BMI 20.7
[2021-07-04] MEDS ORDERED: ACETAMINOPHEN 1000 MG/100 ML BAG IVPB ONE (13:10)
[2021-07-04] MEDS ORDERED: SODIUM CHLORIDE 0.9% 500 ML INFUS.BAG IV ONE (13:10)
[2021-07-04] MEDS ORDERED: ONDANSETRON 4 MG/2 ML VIAL IVPUSH ONE (13:10)
[2021-07-04] MEDS ORDERED: ACETAMINOPHEN INJECTION 100 ML IVPB ONE (13:35)
[2021-07-04] MEDS ORDERED: ONDANSETRON 4 MG/2 ML VIAL ONE (13:35)
[2021-07-04 14:23] LABS: EPITHELIAL CELLS FEW /hpf
[2021-07-04 14:24] LABS: URINE HYALINE CAST 0-2 /lpf
[2021-07-04 14:29] LABS: ALBUMIN 3.4 g/dl (3.4-5.0); BILIRUBIN,TOTAL 0.4 mg/dl (0.2-1); CALCIUM 8.4 mg/dl (8.5-10); CREATININE 0.9 mg/dl (0.55-1.3); MAGNESIUM 1.8 mg/dL (1.8-2.4); PHOSPHOROUS 3.3 mg/dl (2.5-4.9)
[2021-07-04 14:47] LABS: EOS % 8.8 % (0-4.5); HEMATOCRIT 38.9 % (32.4-45.2); HEMOGLOBIN 13.2 GM/dL (10.7-15.3); LYMPH % 26.5 % (8-40); MCH 28.3 pg (25.7-33.7); MCHC 33.9 g/dl (32.0-36.0); MEAN CELL VOLUME 83.6 fl (80-96); MEAN PLT VOLUME 9.5 fl (7.5-11.1); MONO % 13.7 % (3.8-10.2); PLATELET COUNT 60 10^3/uL (134-434); RBC 4.65 M/mm3 (3.60-5.2); RDW 13.5 % (11.6-15.6)
[2021-07-04 17:48] VITALS: BP 130/77; PULSE 89; TEMP 98.1
[2021-07-05 23:06] LABS: SARS-CoV-2 NAA Detected (Not Detected)
== END 2021-07-04 17:55 | disposition home or self-care (01) ==
LOC: FER 12:41
PROC: 3E033GC Introduction of Other Therapeutic Substance into Peripheral Vein, Percutaneous Approach (ICD-10-PCS; principal; 2021-07-04)
DX: R10.84 Generalized abdominal pain (principal); R11.2 Nausea with vomiting, unspecified; R19.7 Diarrhea, unspecified
CPT/HCPCS: 36415; 74177-TC; 80053; 81003; 81015; 83605; 83690; 83735; 84100; 84484; 85025; 87077; 87086; 93005; 99285-25; C9803; J0131; Q9967; U0003; U0005

== ENCOUNTER 2021-09-07 11:11 | Emergency (ER) | payer OTHER ==
[2021-09-07 11:26] VITALS: BP 166/91; PULSE 87; TEMP 99.2; BMI 25.7
== END 2021-09-07 13:32 | disposition home or self-care (01) ==
LOC: FER 11:11
DX: J01.90 Acute sinusitis, unspecified (principal); R04.0 Epistaxis
CPT/HCPCS: 82962; 99283-25

== ENCOUNTER 2021-11-03 11:59 | Emergency (ER) | payer OTHER ==
[2021-11-03 12:04] VITALS: TEMP 97.9; BMI 27.7
[2021-11-03] MEDS ORDERED: ACETAMINOPHEN 325 MG TABLET (FP) PO ONE (13:09)
[2021-11-03] MEDS ORDERED: ACETAMINOPHEN 325 MG TABLET (FP) ONE (13:36)
[2021-11-03 13:56] LABS: BASO % 1.6 % (0-2.0); EOS % 14.3 % (0-4.5); HEMATOCRIT 38.1 % (32.4-45.2); HEMOGLOBIN 12.9 GM/dL (10.7-15.3); LYMPH % 19.8 % (8-40); MCH 27.9 pg (25.7-33.7); MCHC 33.9 g/dl (32.0-36.0); MEAN CELL VOLUME 82.2 fl (80-96); MEAN PLT VOLUME 7.7 fl (7.5-11.1); NEUT % 57.3 % (42.8-82.8); PLATELET COUNT 162 10^3/uL (134-434); RBC 4.63 M/mm3 (3.60-5.2); RDW 13.6 % (11.6-15.6); WHITE BLOOD COUNT 5.5 K/mm3 (4.0-10.0)
[2021-11-03 13:58] LABS: EPI CELLS 13 /uL (0-25.1); HYALINE CASTS 1 /uL (0-3.1); URINE APPEARANCE CLEAR; URINE BACTERIA 50 /uL (0-1359); URINE BILIRUBIN NEGATIVE (NEGATIVE); URINE COLOR YELLOW; URINE GLUCOSE (UA) NEGATIVE (NEGATIVE); URINE KETONE NEGATIVE (NEGATIVE); URINE LEUK ESTERASE TRACE (NEGATIVE); URINE NITRITE NEGATIVE (NEGATIVE); URINE PROTEIN 1+ (NEGATIVE); URINE RBC 2 /uL (0-23.9); URINE UROBILINOGEN 0.2 mg/dL (0.2-1.0); URINE WBC 16 /uL (0-25.8)
[2021-11-03 14:14] LABS: ALBUMIN 3.6 g/dl (3.4-5.0); BLOOD UREA NITROGEN 18.4 mg/dL (7-18); CALCIUM 9.1 mg/dL (8.5-10.1)
[2021-11-03 14:19] LABS: BILIRUBIN,TOTAL 0.3 mg/dL (0.2-1); TOT PROT 6.6 g/dl (6.4-8.2)
[2021-11-03 14:27] LABS: CREATININE 0.7 mg/dL (0.55-1.3)
[2021-11-03] MEDS ORDERED: CEPHALEXIN MONOHYDRATE 250 MG CAPSULE (FP) PO ONE (14:38)
[2021-11-03] MEDS ORDERED: CEPHALEXIN MONOHYDRATE 500 MG CAPSULE (UD) PO ONE (14:42)
[2021-11-03] MEDS ORDERED: CEPHALEXIN MONOHYDRATE 500 MG CAPSULE (UD) ONE (14:42)
[2021-11-03 14:52] VITALS: BP 143/74; PULSE 87
== END 2021-11-03 14:57 | disposition home or self-care (01) ==
LOC: JER 11:59
DX: N30.00 Acute cystitis without hematuria (principal)
CPT/HCPCS: 36415; 80053; 81003; 85025; 87077; 87086; 99283-25

== ENCOUNTER 2022-02-24 11:50 | Emergency (ER) | payer MEDICARE, OTHER ==
[2022-02-24 11:55] VITALS: BP 148/78; PULSE 89; RESP 18; TEMP 98.1; BMI 32.2
[2022-02-24 14:04] LABS: ALBUMIN 3.5 g/dl (3.4-5.0); BLOOD UREA NITROGEN 20.4 mg/dL (7-18)
[2022-02-24 14:07] LABS: BASO % 1.3 % (0-2.0); CREATININE 0.8 mg/dL (0.55-1.3); EOS % 12.4 % (0-4.5); HEMOGLOBIN 12.7 GM/dL (10.7-15.3); LYMPH % 15.2 % (8-40); MCH 27.6 pg (25.7-33.7); MCHC 33.5 g/dl (32.0-36.0); MEAN CELL VOLUME 82.6 fl (80-96); MEAN PLT VOLUME 8.1 fl (7.5-11.1); MONO % 5.7 % (3.8-10.2); NEUT % 65.4 % (42.8-82.8); PLATELET COUNT 190 10^3/uL (134-434); WHITE BLOOD COUNT 6.5 K/mm3 (4.0-10.0)
[2022-02-24 14:09] LABS: BILIRUBIN,TOTAL 0.4 mg/dL (0.2-1); TOT PROT 6.6 g/dl (6.4-8.2)
[2022-02-24 14:19] LABS: EPI CELLS 18 /uL (0-25.1); HYALINE CASTS 2 /uL (0-3.1); PH,URINE 5.5 (5.0-8.0); URINE APPEARANCE CLEAR; URINE BACTERIA 64 /uL (0-1359); URINE BILIRUBIN NEGATIVE (NEGATIVE); URINE COLOR YELLOW; URINE GLUCOSE (UA) NEGATIVE (NEGATIVE); URINE KETONE NEGATIVE (NEGATIVE); URINE LEUK ESTERASE TRACE (NEGATIVE); URINE NITRITE NEGATIVE (NEGATIVE); URINE PROTEIN 2+ (NEGATIVE); URINE RBC 8 /uL (0-23.9); URINE UROBILINOGEN 0.2 mg/dL (0.2-1.0); URINE WBC 11 /uL (0-25.8)
[2022-02-24] MEDS ORDERED: SULFAMETHOXAZOLE/TRIMETHOPRIM 800MG/160MG D.S. TABLET PO ONE (14:44)
[2022-02-24] MEDS ORDERED: SULFAMETHOXAZOLE/TRIMETHOPRIM 800MG/160MG D.S. TABLET ONE (14:51)
== END 2022-02-24 15:22 | disposition home or self-care (01) ==
LOC: JER 11:50
DX: R30.0 Dysuria (principal)
CPT/HCPCS: 36415; 80053; 81003; 82962; 85025; 87077; 87086; 99283-25

== ENCOUNTER 2022-04-27 21:58 | Emergency (ER) | payer MEDICARE, OTHER ==
[2022-04-27 22:03] VITALS: BP 168/91; PULSE 92; RESP 18; TEMP 98.1; BMI 26.4
[2022-04-27] MEDS ORDERED: ACETAMINOPHEN 500 MG TABLET (FP) PO ONE (23:33)
== END 2022-04-28 02:07 | disposition home or self-care (01) ==
LOC: JER 21:58 → JERFT 21:58 → JER 04-28 02:07
DX: M25.562 Pain in left knee (principal); W19.XXXA Unspecified fall, initial encounter; Y92.9 Unspecified place or not applicable
CPT/HCPCS: 72170-TC-FY; 73560-TC-LT-FY; 73610-TC-LT-FY; 73630-TC-LT; 99284-25

== ENCOUNTER 2022-06-23 23:21 | Emergency (ER) | payer MEDICARE, OTHER ==
[2022-06-23 23:33] VITALS: BMI 27.3
[2022-06-23] MEDS ORDERED: SODIUM CHLORIDE 0.9% 500 ML INFUS.BAG IV ONE (23:41)
[2022-06-23] MEDS ORDERED: LACTATED RINGERS SOLUTION 1,000 ML/1,000 ML INFUS.BAG IV SCH (23:45)
[2022-06-23] MEDS ORDERED: FAMOTIDINE 20 MG/50 ML IVPB 20 MG/50 ML MG IVPB ONE (23:46)
[2022-06-23 23:56] VITALS: BP 139/79; PULSE 92; RESP 18; TEMP 99.2
[2022-06-24] MEDS ORDERED: FAMOTIDINE 20 MG/50 ML IVPB 20 MG/50 ML MG IVPB ONE (00:44)
[2022-06-24 00:57] LABS: BASO % 0.4 % (0-2.0); EOS % 7.1 % (0-4.5); HEMATOCRIT 35.7 % (32.4-45.2); HEMOGLOBIN 11.9 GM/dL (10.7-15.3); LYMPH % 11.9 % (8-40); MCH 26.8 pg (25.7-33.7); MCHC 33.4 g/dl (32.0-36.0); MEAN CELL VOLUME 80.5 fl (80-96); MEAN PLT VOLUME 8.4 fl (7.5-11.1); MONO % 8.5 % (3.8-10.2); NEUT % 72.1 % (42.8-82.8); PLATELET COUNT 133 10^3/uL (134-434); RBC 4.44 M/mm3 (3.60-5.2); RDW 13.4 % (11.6-15.6)
[2022-06-24 01:20] LABS: CALCIUM 8.3 mg/dL (8.5-10.1)
[2022-06-24 01:21] LABS: ALBUMIN 3.1 g/dl (3.4-5.0); BLOOD UREA NITROGEN 17.5 mg/dL (7-18)
[2022-06-24 01:24] LABS: CREATININE 0.8 mg/dL (0.55-1.3)
[2022-06-24 01:26] LABS: BILIRUBIN,TOTAL 0.6 mg/dL (0.2-1); TOT PROT 6.1 g/dl (6.4-8.2)
== END 2022-06-24 01:27 | disposition home or self-care (01) ==
LOC: FER 23:21
PROC: 3E033GC Introduction of Other Therapeutic Substance into Peripheral Vein, Percutaneous Approach (ICD-10-PCS; principal; 2022-06-23)
DX: A05.9 Bacterial foodborne intoxication, unspecified (principal)
CPT/HCPCS: 0241U-QW; 36415; 80053; 85025; 99284-25

== ENCOUNTER 2022-08-09 14:04 | Emergency (ER) | payer MEDICARE, OTHER ==
[2022-08-09 14:32] VITALS: TEMP 98.7; BMI 27.9
[2022-08-09] MEDS ORDERED: MECLIZINE HCL 12.5 MG TABLET PO ONE (15:11)
[2022-08-09] MEDS ORDERED: MECLIZINE HCL 12.5 MG TABLET ONE (15:13)
[2022-08-09 17:14] LABS: EPI CELLS 19 /uL (0-25.1); HYALINE CASTS 1 /uL (0-3.1); PH,URINE 5.5 (5.0-8.0); URINE APPEARANCE CLEAR; URINE BACTERIA 46 /uL (0-1359); URINE BILIRUBIN NEGATIVE (NEGATIVE); URINE COLOR YELLOW; URINE GLUCOSE (UA) NEGATIVE (NEGATIVE); URINE KETONE NEGATIVE (NEGATIVE); URINE LEUK ESTERASE TRACE (NEGATIVE); URINE NITRITE NEGATIVE (NEGATIVE); URINE PROTEIN 1+ (NEGATIVE); URINE RBC 13 /uL (0-23.9); URINE UROBILINOGEN 0.2 mg/dL (0.2-1.0); URINE WBC 53 /uL (0-25.8)
[2022-08-09 18:14] VITALS: BP 141/80; PULSE 83; RESP 18
== END 2022-08-09 20:39 | disposition home or self-care (01) ==
LOC: JER 14:04
DX: J32.9 Chronic sinusitis, unspecified (principal)
CPT/HCPCS: 70450-TC; 71046-TC-FY; 81003; 87077; 87086; 93005; 93010; 99285-25

== ENCOUNTER 2022-11-16 10:12 | Emergency (ER) | payer MEDICARE, OTHER ==
[2022-11-16 10:25] VITALS: BP 153/79; RESP 17; TEMP 98.6; BMI 25.9
[2022-11-16] MEDS ORDERED: ACETAMINOPHEN 500 MG TABLET (FP) PO ONE (11:10)
[2022-11-16 12:19] LABS: HEMATOCRIT 35.4 % (32.4-45.2); HEMOGLOBIN 11.8 GM/dL (10.7-15.3); MCH 26.7 pg (25.7-33.7); MCHC 33.4 g/dl (32.0-36.0); MEAN CELL VOLUME 79.9 fl (80-96); MEAN PLT VOLUME 7.5 fl (7.5-11.1); PLATELET COUNT 245 10^3/uL (134-434); RBC 4.43 M/mm3 (3.60-5.2); RDW 13.9 % (11.6-15.6)
[2022-11-16 12:45] LABS: POTASSIUM 4.7 mmol/L (3.5-5.1)
[2022-11-16 12:47] LABS: CALCIUM 9.4 mg/dL (8.5-10.1)
[2022-11-16 12:48] LABS: ALBUMIN 3.3 g/dl (3.4-5.0); BLOOD UREA NITROGEN 17.2 mg/dL (7-18)
[2022-11-16 12:51] LABS: CREATININE 0.8 mg/dL (0.55-1.3)
[2022-11-16 12:52] LABS: BILIRUBIN,TOTAL 0.3 mg/dL (0.2-1); TOT PROT 6.5 g/dl (6.4-8.2)
[2022-11-16 13:52] LABS: EPI CELLS 31 /uL (0-25.1); HYALINE CASTS 4 /uL (0-3.1); PH,URINE 5.5 (5.0-8.0); URINE APPEARANCE CLEAR; URINE BACTERIA 57 /uL (0-1359); URINE BILIRUBIN NEGATIVE (NEGATIVE); URINE COLOR YELLOW; URINE GLUCOSE (UA) NEGATIVE (NEGATIVE); URINE KETONE NEGATIVE (NEGATIVE); URINE LEUK ESTERASE TRACE (NEGATIVE); URINE NITRITE NEGATIVE (NEGATIVE); URINE PROTEIN 2+ (NEGATIVE); URINE RBC 7 /uL (0-23.9); URINE UROBILINOGEN 0.2 mg/dL (0.2-1.0); URINE WBC 15 /uL (0-25.8)
[2022-11-16] MEDS ORDERED: CEFTRIAXONE 1,000 MG in DEXTROSE 5%-WATER - 50 ML IVPB ONE (14:13)
[2022-11-16] MEDS ORDERED: CEFTRIAXONE 1 GM/50 ML BAG ONE (14:26)
[2022-11-16 15:52] VITALS: PULSE 85
== END 2022-11-16 15:55 | disposition home or self-care (01) ==
LOC: JER 10:12
DX: R10.32 Left lower quadrant pain (principal); M54.50 Low back pain, unspecified
CPT/HCPCS: 36415; 74176-TC; 80053; 81003; 85027; 87086; 96365; 99284-25

== ENCOUNTER 2023-03-06 12:03 | Emergency (ER) | payer MEDICARE, OTHER ==
[2023-03-06 12:08] VITALS: BP 165/77; PULSE 85; RESP 18; TEMP 97.9; BMI 26.8
[2023-03-06] MEDS ORDERED: ALBUTEROL SO4 2.5/IPRATROPIUM 0.5 INH SOL 3 ML VIAL.NEB. NEB ONE ×2 (13:03→13:11)
== END 2023-03-06 14:16 | disposition home or self-care (01) ==
LOC: JERFT 12:03
PROC: 3E0F7GC Introduction of Other Therapeutic Substance into Respiratory Tract, Via Natural or Artificial Opening (ICD-10-PCS; principal; 2023-03-06)
DX: J45.909 Unspecified asthma, uncomplicated (principal); J06.9 Acute upper respiratory infection, unspecified
CPT/HCPCS: 71046-TC-FY; 82962; 99284-25

== ENCOUNTER 2023-03-14 08:14 | Emergency (ER) | payer MEDICARE, OTHER ==
[2023-03-14 08:23] VITALS: BP 165/81; PULSE 74; RESP 20; TEMP 97.6; BMI 26.8
== END 2023-03-14 09:50 | disposition home or self-care (01) ==
LOC: JERFT 08:14
DX: R09.81 Nasal congestion (principal); R09.82 Postnasal drip; J01.90 Acute sinusitis, unspecified; R09.89 Other specified symptoms and signs involving the circulatory and respiratory systems
CPT/HCPCS: 99283-25

== ENCOUNTER 2023-04-13 11:16 | Emergency (ER) | payer MEDICARE, OTHER ==
[2023-04-13 11:26] VITALS: RESP 20; BMI 25.9
[2023-04-13] MEDS ORDERED: ALBUTEROL SO4 2.5/IPRATROPIUM 0.5 INH SOL 3 ML VIAL.NEB. NEB ONE ×2 (12:48→12:54)
[2023-04-13] MEDS ORDERED: ACETAMINOPHEN 500 MG TABLET (FP) PO ONE (12:48)
[2023-04-13] MEDS ORDERED: DEXAMETHASONE SOD PHOSPHATE 10 MG/1 ML VIAL PO ONE (12:48)
[2023-04-13] MEDS ORDERED: DEXAMETHASONE SOD PHOSPHATE 10 MG/1 ML VIAL ONE (12:55)
[2023-04-13] MEDS ORDERED: ACETAMINOPHEN 500 MG TABLET (FP) ONE (12:55)
[2023-04-13 14:27] VITALS: BP 168/84; PULSE 78; TEMP 98.2
== END 2023-04-13 15:23 | disposition home or self-care (01) ==
LOC: JER 11:16
PROC: 3E033GC Introduction of Other Therapeutic Substance into Peripheral Vein, Percutaneous Approach (ICD-10-PCS; principal; 2023-04-13)
PROC: 3E0F7GC Introduction of Other Therapeutic Substance into Respiratory Tract, Via Natural or Artificial Opening (ICD-10-PCS; 2023-04-13)
DX: R05.1 Acute cough (principal); J02.9 Acute pharyngitis, unspecified; R51.9 Headache, unspecified; H92.03 Otalgia, bilateral; R09.89 Other specified symptoms and signs involving the circulatory and respiratory systems; J30.9 Allergic rhinitis, unspecified; J01.90 Acute sinusitis, unspecified; Z20.822 Contact with and (suspected) exposure to COVID-19
CPT/HCPCS: 0241U-QW; 71046-TC-FY; 99284-25; J1100

== ENCOUNTER 2023-06-22 16:19 | Emergency (ER) | payer MEDICARE, OTHER ==
[2023-06-22 16:27] VITALS: BMI 26.4
[2023-06-22] MEDS ORDERED: predniSONE 20 MG TABLET (UD) PO ONE (17:26)
[2023-06-22] MEDS ORDERED: ACETAMINOPHEN 325 MG TABLET (FP) PO ONE (17:26)
[2023-06-22] MEDS ORDERED: ALBUTEROL SO4 2.5/IPRATROPIUM 0.5 INH SOL 3 ML VIAL.NEB. NEB ONE ×3 (17:26→18:31)
[2023-06-22] MEDS ORDERED: predniSONE 20 MG TABLET (UD) ONE (17:31)
[2023-06-22] MEDS ORDERED: ACETAMINOPHEN 325 MG TABLET (FP) ONE (17:32)
[2023-06-22] MEDS ORDERED: ALBUTEROL SO4 0.042% IH SOL 1.25 MG/3 ML VIAL.NEB NEB ONE (18:15)
[2023-06-22] MEDS ORDERED: ALBUTEROL SO4 0.083% IH SOL 2.5 MG/3 ML VIAL.NEB. NEB ONE (18:25)
[2023-06-22 19:26] VITALS: BP 122/78; PULSE 78; RESP 19; TEMP 97.9
== END 2023-06-22 19:24 | disposition home or self-care (01) ==
LOC: JER 16:19
PROC: 3E0F7GC Introduction of Other Therapeutic Substance into Respiratory Tract, Via Natural or Artificial Opening (ICD-10-PCS; principal; 2023-06-22)
PROC: 3E0F7GC Introduction of Other Therapeutic Substance into Respiratory Tract, Via Natural or Artificial Opening (ICD-10-PCS; 2023-06-22)
DX: J45.901 Unspecified asthma with (acute) exacerbation (principal); B97.4 Respiratory syncytial virus as the cause of diseases classified elsewhere; R05.9 Cough, unspecified; R11.0 Nausea; R09.81 Nasal congestion; R51.9 Headache, unspecified; Z20.822 Contact with and (suspected) exposure to COVID-19
CPT/HCPCS: 0241U-QW; 71046-TC-FY; 94640; 99284-25

== ENCOUNTER 2023-10-20 10:39 | Emergency (ER) | payer MEDICARE, OTHER ==
[2023-10-20 10:46] VITALS: BP 170/85; PULSE 85; RESP 18; TEMP 98; BMI 26.6
[2023-10-20] MEDS ORDERED: ALBUTEROL SO4 2.5/IPRATROPIUM 0.5 INH SOL 3 ML VIAL.NEB. NEB ONE (11:50)
[2023-10-20] MEDS: ALBUTEROL SO4 2.5/IPRATROPIUM 0.5 INH SOL 3 ML VIAL.NEB. NEB ONE (11:53)
== END 2023-10-20 12:24 | disposition home or self-care (01) ==
LOC: JER 10:39
PROC: 3E0F7GC Introduction of Other Therapeutic Substance into Respiratory Tract, Via Natural or Artificial Opening (ICD-10-PCS; principal; 2023-10-20)
DX: J45.20 Mild intermittent asthma, uncomplicated (principal); J06.9 Acute upper respiratory infection, unspecified; B97.89 Other viral agents as the cause of diseases classified elsewhere; R06.02 Shortness of breath; R09.81 Nasal congestion; R05.9 Cough, unspecified; Z20.822 Contact with and (suspected) exposure to COVID-19
CPT/HCPCS: 0241U-QW; 71046-TC-FY; 93005; 93010; 94640; 99285-25

== ENCOUNTER 2024-01-25 11:00 | Emergency (ER) | payer MEDICARE, OTHER ==
[2024-01-25 11:21] VITALS: BP 197/85; PULSE 73; RESP 20; TEMP 98.6; BMI 27.1
[2024-01-25] MEDS ORDERED: predniSONE 20 MG TABLET (UD) ONE (11:31)
[2024-01-25] MEDS ORDERED: ALBUTEROL SO4 2.5/IPRATROPIUM 0.5 INH SOL 3 ML VIAL.NEB. NEB ONE (11:31)
[2024-01-25] MEDS ORDERED: LOSARTAN POTASSIUM 25 MG TABLET ONE (11:31)
[2024-01-25] MEDS: predniSONE 20 MG TABLET (UD) PO ONE (11:40)
[2024-01-25] MEDS: ALBUTEROL SO4 2.5/IPRATROPIUM 0.5 INH SOL 3 ML VIAL.NEB. NEB ONE (11:44)
[2024-01-25] MEDS: LOSARTAN POTASSIUM 25 MG TABLET PO ONE (12:16)
== END 2024-01-25 12:24 | disposition home or self-care (01) ==
LOC: FER 11:00
PROC: 3E0F7GC Introduction of Other Therapeutic Substance into Respiratory Tract, Via Natural or Artificial Opening (ICD-10-PCS; principal; 2024-01-25)
DX: J45.909 Unspecified asthma, uncomplicated (principal); R05.9 Cough, unspecified; R09.81 Nasal congestion; J02.9 Acute pharyngitis, unspecified; Z20.822 Contact with and (suspected) exposure to COVID-19
CPT/HCPCS: 0241U-QW; 71046-TC-FY; 82962; 94640; 99284-25

== ENCOUNTER 2024-02-09 11:45 | Observation (INO) | payer MEDICARE, OTHER ==
[2024-02-09 11:51] VITALS: BMI 29.2
[2024-02-09 14:00] LABS: BASO % 1.4 % (0-2.0); EOS % 12.1 % (0-4.5); HEMOGLOBIN 12.4 GM/dL (10.7-15.3); LYMPH % 12.6 % (8-40); MCH 27.7 pg (25.7-33.7); MCHC 33.5 g/dl (32.0-36.0); MEAN CELL VOLUME 82.5 fl (80-96); MEAN PLT VOLUME 8.6 fl (7.5-11.1); MONO % 5.6 % (3.8-10.2); NEUT % 68.3 % (42.8-82.8); PLATELET COUNT 174 10^3/uL (134-434); RBC 4.49 M/mm3 (3.60-5.2); RDW 13.8 % (11.6-15.6); WHITE BLOOD COUNT 7.8 K/mm3 (4.0-10.0)
[2024-02-09 14:17] LABS: ALBUMIN 3.2 g/dl (3.4-5.0); BLOOD UREA NITROGEN 17.3 mg/dL (7-18); CALCIUM 8.9 mg/dL (8.5-10.1)
[2024-02-09 14:22] LABS: BILIRUBIN,TOTAL 0.4 mg/dL (0.2-1); TOT PROT 6.6 g/dl (6.4-8.2)
[2024-02-09] MEDS ORDERED: amLODIPine BESYLATE 5 MG TABLET (FP) ONE (15:55)
[2024-02-09] MEDS ORDERED: ASPIRIN COATED 81 MG TABLET.EC ONE (15:56)
[2024-02-09] MEDS: amLODIPine BESYLATE 5 MG TABLET (FP) PO SCH (16:02)
[2024-02-09] MEDS: ASPIRIN COATED 81 MG TABLET.EC PO SCH (16:02)
[2024-02-09] MEDS ORDERED: INSULIN ASPART SLIDING SCALE (NOVOLOG) 1 VIAL SQ ONE (18:22)
[2024-02-09] MEDS: INSULIN ASPART SLIDING SCALE (NOVOLOG) 1 VIAL SQ SCH (18:25)
[2024-02-09] MEDS ORDERED: HEPARIN NA (PORCINE) 5,000 UNITS/ML 1ML VIAL ONE (22:16)
[2024-02-09] MEDS: HEPARIN NA (PORCINE) 5,000 UNITS/ML 1ML VIAL SQ SCH (22:21)
[2024-02-10 07:41] LABS: BASO % 1.5 % (0-2.0); EOS % 18.2 % (0-4.5); HEMATOCRIT 36.3 % (32.4-45.2); HEMOGLOBIN 12.2 GM/dL (10.7-15.3); LYMPH % 16.5 % (8-40); MCH 27.7 pg (25.7-33.7); MCHC 33.6 g/dl (32.0-36.0); MEAN CELL VOLUME 82.5 fl (80-96); MEAN PLT VOLUME 8.2 fl (7.5-11.1); MONO % 5.5 % (3.8-10.2); NEUT % 58.3 % (42.8-82.8); PLATELET COUNT 170 10^3/uL (134-434); RDW 13.6 % (11.6-15.6); WHITE BLOOD COUNT 6.2 K/mm3 (4.0-10.0)
[2024-02-10 07:56] LABS: POTASSIUM 4.5 mmol/L (3.5-5.1)
[2024-02-10 07:59] LABS: BLOOD UREA NITROGEN 17.1 mg/dL (7-18); CALCIUM 9.2 mg/dL (8.5-10.1)
[2024-02-10 08:03] LABS: CREATININE 0.8 mg/dL (0.55-1.3)
[2024-02-10] MEDS ORDERED: INSULIN ASPART SLIDING SCALE (NOVOLOG) 1 VIAL SQ ONE ×2 (08:25→08:35)
[2024-02-10 09:38] VITALS: RESP 16
[2024-02-10 13:55] VITALS: BP 142/72; PULSE 78; TEMP 98.2
== END 2024-02-10 13:55 | disposition home or self-care (01) ==
LOC: JER 11:45 → JERBED 14:38
PROVIDERS: ADMIT Internal Medicine; ATTEND Internal Medicine
PROC: 3E023GC Introduction of Other Therapeutic Substance into Muscle, Percutaneous Approach (ICD-10-PCS; principal; 2024-02-09)
PROC: 3E013VG Introduction of Insulin into Subcutaneous Tissue, Percutaneous Approach (ICD-10-PCS; 2024-02-09)
DX: R07.9 Chest pain, unspecified (principal); F41.9 Anxiety disorder, unspecified; E03.9 Hypothyroidism, unspecified; M54.89 Other dorsalgia; I16.0 Hypertensive urgency; F03.A0 Unspecified dementia, mild, without behavioral disturbance, psychotic disturbance, mood disturbance, and anxiety; J45.909 Unspecified asthma, uncomplicated; E11.9 Type 2 diabetes mellitus without complications; E78.5 Hyperlipidemia, unspecified; R00.2 Palpitations; D72.10 Eosinophilia, unspecified
CPT/HCPCS: 36415; 71046-TC-FY; 80048; 80053; 80061; 82962; 83036; 84443; 84484; 85025; 93005; 93010; 93306-TC; 96372; 99285-25; G0378; J1644

== ENCOUNTER 2024-04-29 13:09 | Emergency (ER) | payer MEDICARE, OTHER ==
[2024-04-29 13:27] VITALS: BP 166/72; PULSE 82; RESP 18; TEMP 98.3; BMI 27.3
[2024-04-29] MEDS ORDERED: predniSONE 20 MG TABLET (UD) ONE (14:10)
[2024-04-29] MEDS ORDERED: ACETAMINOPHEN 500 MG TABLET (FP) ONE (14:10)
[2024-04-29] MEDS: predniSONE 20 MG TABLET (UD) PO ONE (14:18)
[2024-04-29] MEDS: ACETAMINOPHEN 500 MG TABLET (FP) PO ONE (14:18)
[2024-04-29] MEDS ORDERED: ALBUTEROL SO4 2.5/IPRATROPIUM 0.5 INH SOL 3 ML VIAL.NEB. NEB ONE ×2 (15:36→15:47)
[2024-04-29] MEDS ORDERED: FAMOTIDINE 20 MG TABLET ONE (15:36)
[2024-04-29] MEDS: FAMOTIDINE 10 MG TABLET PO ONE (15:46)
[2024-04-29] MEDS: ALBUTEROL SO4 2.5/IPRATROPIUM 0.5 INH SOL 3 ML VIAL.NEB. NEB SCH (15:46)
== END 2024-04-29 16:19 | disposition home or self-care (01) ==
LOC: JER 13:09
PROC: 3E0F7GC Introduction of Other Therapeutic Substance into Respiratory Tract, Via Natural or Artificial Opening (ICD-10-PCS; principal; 2024-04-29)
DX: J45.21 Mild intermittent asthma with (acute) exacerbation (principal); R05.9 Cough, unspecified; M79.10 Myalgia, unspecified site; R06.02 Shortness of breath; R50.9 Fever, unspecified; Z20.822 Contact with and (suspected) exposure to COVID-19
CPT/HCPCS: 0241U-QW; 71046-TC-FY; 93005; 93010; 99285-25

== ENCOUNTER 2024-08-04 11:08 | Emergency (ER) | payer OTHER ==
[2024-08-04 11:17] VITALS: TEMP 98.2; BMI 27.3
[2024-08-04] MEDS ORDERED: ALBUTEROL SO4 2.5/IPRATROPIUM 0.5 INH SOL 3 ML VIAL.NEB. NEB ONE (12:04)
[2024-08-04] MEDS: ALBUTEROL SO4 2.5/IPRATROPIUM 0.5 INH SOL 3 ML VIAL.NEB. NEB ONE (12:27)
[2024-08-04 12:35] LABS: HEMATOCRIT 39.6 % (32.4-45.2); HEMOGLOBIN 12.6 GM/dL (10.7-15.3); MCH 26.5 pg (25.7-33.7); MCHC 31.7 g/dl (32.0-36.0); MEAN CELL VOLUME 83.5 fl (80-96); MEAN PLT VOLUME 8.1 fl (7.5-11.1); PLATELET COUNT 173 10^3/uL (134-434); RBC 4.75 M/mm3 (3.60-5.2); RDW 13.9 % (11.6-15.6); WHITE BLOOD COUNT 7.2 K/mm3 (4.0-10.0)
[2024-08-04 12:58] LABS: CALCIUM 9.2 mg/dL (8.5-10.1)
[2024-08-04 12:59] LABS: ALBUMIN 3.1 g/dl (3.4-5.0); BLOOD UREA NITROGEN 13.7 mg/dL (7-18)
[2024-08-04 13:02] LABS: CREATININE 0.8 mg/dL (0.55-1.3)
[2024-08-04 13:03] LABS: BILIRUBIN,TOTAL 0.2 mg/dL (0.2-1); TOT PROT 6.2 g/dl (6.4-8.2)
[2024-08-04 13:13] LABS: ANISOCYTOSIS 0; HELMET CELLS 0; HOWELL-JOLLY BODIES 0; MACROCYTOSIS 0; OVALOCYTE 0; ROULEAU 0; SICKELED CELLS 0; TARGET CELLS 0; TEAR DROP CELLS 0; TOXIC GRANULATION 0
[2024-08-04 13:53] LABS: HIV INTERPRETATION NEGATIVE (NEGATIVE)
[2024-08-04 15:26] VITALS: BP 195/90; PULSE 83; RESP 23
== END 2024-08-04 14:09 | disposition home or self-care (01) ==
LOC: JER 11:08
PROC: 3E0F7GC Introduction of Other Therapeutic Substance into Respiratory Tract, Via Natural or Artificial Opening (ICD-10-PCS; principal; 2024-08-04)
DX: R07.2 Precordial pain (principal); J45.909 Unspecified asthma, uncomplicated; R05.9 Cough, unspecified; Z20.822 Contact with and (suspected) exposure to COVID-19
CPT/HCPCS: 0241U-QW; 36415; 71046-TC-FY; 80053; 84484; 85025; 86803; 87389; 93005; 93010; 99285-25

== ENCOUNTER 2024-10-03 15:50 | Observation (INO) | payer MEDICARE, OTHER ==
[2024-10-03] MEDS: ACETAMINOPHEN 1000 MG/100 ML BAG IVPB ONE (17:00)
[2024-10-03] MEDS: LACTATED RINGERS SOLUTION 1000 ML INFUS.BAG IV ONE (17:00)
[2024-10-03] MEDS ORDERED: ACETAMINOPHEN INJECTION 100 ML ONE (17:08)
[2024-10-03 17:30] LABS: VENOUS BASE EXCESS 1.3 mmol/L (-2-2); VENOUS O2 SATURATION 32.2 % (70-80); VENOUS PCO2 42.7 mmHg (38-52); VENOUS PH 7.406 (7.310-7.410)
[2024-10-03 17:42] LABS: EPI CELLS >36 /uL (0-25.1); HYALINE CASTS 2 /uL (0-3.1); PH,URINE 5.5 (5.0-8.0); URINE APPEARANCE CLOUDY; URINE BACTERIA 810 /uL (0-1359); URINE BILIRUBIN NEGATIVE (NEGATIVE); URINE COLOR YELLOW; URINE GLUCOSE (UA) NEGATIVE (NEGATIVE); URINE KETONE TRACE (NEGATIVE); URINE LEUK ESTERASE 2+ (NEGATIVE); URINE NITRITE NEGATIVE (NEGATIVE); URINE PROTEIN 3+ (NEGATIVE); URINE RBC 24 /uL (0-23.9); URINE UROBILINOGEN 0.2 mg/dL (0.2-1.0); URINE WBC 1182 /uL (0-25.8)
[2024-10-03 17:48] LABS: ABSOLUTE IMMATURE GRANULOCYTES 0.02 x10^3/uL (0.0-0.031); BASOPHILS # 0.02 x10^3/uL (0.01-0.08); EOSINOPHILS # 0.15 x10^3/uL (0.04-0.36); HEMATOCRIT 35.7 % (34.1-44.9); HEMOGLOBIN 11.1 g/dL (11.2-15.7); MCHC 31.1 g/dl (32.2-35.5); MEAN CELL VOLUME 84.6 fl (79.4-94.8); MEAN PLT VOLUME 10.6 fl (9.4-12.3); PLATELET COUNT 118 x10^3/uL (182-369)
[2024-10-03 17:58] LABS: POTASSIUM 4.6 mmol/L (3.5-5.1)
[2024-10-03] MEDS ORDERED: CEFTRIAXONE 1 G/50 ML PREMIX 50 ML IVPB ONE (17:59)
[2024-10-03 18:00] LABS: ALBUMIN 3.2 g/dl (3.4-5.0); BLOOD UREA NITROGEN 18.1 mg/dL (7-18); CALCIUM 8.5 mg/dL (8.5-10.1); MAGNESIUM 2.1 mg/dL (1.8-2.4)
[2024-10-03 18:05] LABS: BILIRUBIN,TOTAL 0.4 mg/dL (0.2-1); TOT PROT 6.5 g/dl (6.4-8.2)
[2024-10-03] MEDS ORDERED: OSELTAMIVIR PHOSPHATE 75 MG CAPSULE ONE (19:24)
[2024-10-03] MEDS: OSELTAMIVIR PHOSPHATE 75 MG CAPSULE PO ONE (19:30)
[2024-10-03 22:27] VITALS: BMI 26.6
[2024-10-03] MEDS ORDERED: ACETAMINOPHEN 325 MG TABLET (FP) PO PRN (22:57)
[2024-10-03] MEDS ORDERED: ALBUTEROL SO4 HFA INHALER IH PRN (23:06)
[2024-10-03] MEDS ORDERED: ALBUTEROL SO4 2.5/IPRATROPIUM 0.5 INH SOL 3 ML VIAL.NEB. NEB PRN (23:07)
[2024-10-04] MEDS: guaiFENesin 600 MG TABLET.ER (FP) PO SCH (00:12)
[2024-10-04] MEDS: methylPREDNISolone NA SUCC 125 MG/2 ML VIAL IVPUSH ONE (05:15)
[2024-10-04] MEDS: INSULIN ASPART SLIDING SCALE (NOVOLOG) 1 VIAL SQ SCH (06:00)
[2024-10-04] MEDS: ALBUTEROL SO4 2.5/IPRATROPIUM 0.5 INH SOL 3 ML VIAL.NEB. NEB SCH (07:20)
[2024-10-04 09:13] LABS: HEMATOCRIT 35.8 % (34.1-44.9); HEMOGLOBIN 11.3 g/dL (11.2-15.7); MCHC 31.6 g/dl (32.2-35.5); MEAN PLT VOLUME 10.1 fl (9.4-12.3); PLATELET COUNT 94 x10^3/uL (182-369); RDW 12.7 % (12.4-16.6)
[2024-10-04 09:34] LABS: POTASSIUM 3.8 mmol/L (3.5-5.1)
[2024-10-04 09:45] LABS: CALCIUM 8.4 mg/dL (8.5-10.1)
[2024-10-04 09:46] LABS: ALBUMIN 3.2 g/dl (3.4-5.0); BLOOD UREA NITROGEN 18.5 mg/dL (7-18)
[2024-10-04 09:47] LABS: BILIRUBIN,TOTAL 0.4 mg/dL (0.2-1)
[2024-10-04] MEDS: methylPREDNISolone NA SUCC 40 MG/1 ML VIAL IVPUSH SCH (09:49)
[2024-10-04] MEDS: CEFTRIAXONE 1 G/50 ML PREMIX 50 ML IVPB SCH (09:50)
[2024-10-04 09:51] LABS: TOT PROT 6.6 g/dl (6.4-8.2)
[2024-10-04] MEDS: INSULIN GLARGINE (LANTUS) 100 UNITS/ML UNITS SQ SCH ×2 (13:44→20:59)
[2024-10-05 08:43] LABS: HEMATOCRIT 34.7 % (34.1-44.9); HEMOGLOBIN 11.3 g/dL (11.2-15.7); MCHC 32.6 g/dl (32.2-35.5); MEAN CELL VOLUME 82.2 fl (79.4-94.8); MEAN PLT VOLUME 10.5 fl (9.4-12.3); PLATELET COUNT 116 x10^3/uL (182-369)
[2024-10-05 08:58] LABS: POTASSIUM 4.3 mmol/L (3.5-5.1)
[2024-10-05 09:05] LABS: ALBUMIN 3.3 g/dl (3.4-5.0); BLOOD UREA NITROGEN 27.4 mg/dL (7-18); CALCIUM 8.8 mg/dL (8.5-10.1)
[2024-10-05 09:08] LABS: CREATININE 1.1 mg/dL (0.55-1.3)
[2024-10-05 09:10] LABS: BILIRUBIN,TOTAL 0.4 mg/dL (0.2-1); TOT PROT 6.9 g/dl (6.4-8.2)
[2024-10-05 10:22] VITALS: RESP 18
[2024-10-05 14:18] VITALS: BP 153/86; PULSE 83; TEMP 97.5
[2024-10-05] MEDS: DONEPEZIL HCL 5 MG TABLET (FP) PO SCH (14:56)
[2024-10-05] MEDS: amLODIPine BESYLATE 10 MG TABLET (FP) PO SCH (14:56)
[2024-10-05] MEDS: DIVALPROEX NA *ER* EXTEND REL 250 MG TABLET.SA PO SCH (14:56)
[2024-10-05] MEDS: LISINOPRIL 5 MG TABLET PO SCH (16:15)
[2024-10-05] MEDS ORDERED: ATORVASTATIN CA 80 MG TABLET (FP) PO SCH (22:00)
[2024-10-05] MEDS ORDERED: BUDESONIDE/FORMETEROL FUMARATE 160/4.5 mcg INHALER IH SCH (22:00)
== END 2024-10-05 17:13 | disposition left against medical advice (07) ==
LOC: JER 15:50 → JERBED 18:31 → INTOOBSV 18:31 → J5S 22:03
PROVIDERS: ADMIT Internal Medicine
PROC: 3E033NZ Introduction of Analgesics, Hypnotics, Sedatives into Peripheral Vein, Percutaneous Approach (ICD-10-PCS; principal; 2024-10-03)
PROC: 3E03329 Introduction of Other Anti-infective into Peripheral Vein, Percutaneous Approach (ICD-10-PCS; 2024-10-03)
PROC: 3E0337Z Introduction of Electrolytic and Water Balance Substance into Peripheral Vein, Percutaneous Approach (ICD-10-PCS; 2024-10-03)
DX: N39.0 Urinary tract infection, site not specified (principal); G93.41 Metabolic encephalopathy; J10.1 Influenza due to other identified influenza virus with other respiratory manifestations; G30.9 Alzheimer's disease, unspecified; F02.80 Dementia in other diseases classified elsewhere, unspecified severity, without behavioral disturbance, psychotic disturbance, mood disturbance, and anxiety; J45.909 Unspecified asthma, uncomplicated; E11.9 Type 2 diabetes mellitus without complications; I10 Essential (primary) hypertension
CPT/HCPCS: 0241U-QW; 36415; 71045-TC-FY; 80053; 81003; 82728; 82803; 82962; 83036; 83540; 83550; 83605; 83735; 84484; 85025; 85027; 86850; 86900; 86901; 87040; 87086; 93005; 93010; 94640; 96365; 96375; 97116-GP; 97161-GP; 99285-25; G0378; J0131

== ENCOUNTER 2024-12-25 13:46 | Emergency (ER) | payer MEDICARE, OTHER ==
[2024-12-25 13:56] VITALS: BP 179/76; PULSE 86; RESP 20; TEMP 98.3; BMI 27.7
[2024-12-25 14:54] LABS: ABSOLUTE IMMATURE GRANULOCYTES 0.01 x10^3/uL (0.0-0.031); EOSINOPHILS # 1.07 x10^3/uL (0.04-0.36); HEMATOCRIT 34.1 % (34.1-44.9); HEMOGLOBIN 10.8 g/dL (11.2-15.7); MCHC 31.7 g/dl (32.2-35.5); MEAN CELL VOLUME 85.3 fl (79.4-94.8); MEAN PLT VOLUME 9.9 fl (9.4-12.3); MONOCYTE # 0.46 x10^3/uL (0.24-0.86); MONOCYTE % 7.3 % (4.7-12.5); PLATELET COUNT 161 x10^3/uL (182-369)
[2024-12-25 14:58] LABS: VENOUS BASE EXCESS 1.3 mmol/L (-2-2); VENOUS O2 SATURATION 47.8 % (70-80); VENOUS PCO2 49.6 mmHg (38-52); VENOUS PH 7.36 (7.310-7.410)
[2024-12-25 15:01] LABS: INR 1.04 (0.83-1.09); PROTHROMBIN TIME (PATIENT) 11.3 SEC (9.7-13.0)
[2024-12-25 15:04] LABS: ACTIVATED PTT 30.8 SECONDS (25.2-36.5)
[2024-12-25 15:12] LABS: POTASSIUM 4.5 mmol/L (3.5-5.1)
[2024-12-25 15:17] LABS: BLOOD UREA NITROGEN 18.8 mg/dL (7-18); CALCIUM 8.9 mg/dL (8.5-10.1)
[2024-12-25 15:20] LABS: BILIRUBIN,TOTAL 0.2 mg/dL (0.2-1)
[2024-12-25 16:58] LABS: EPI CELLS 19 /uL (0-25.1); HYALINE CASTS 3 /uL (0-3.1); URINE APPEARANCE CLEAR; URINE BACTERIA 396 /uL (0-1359); URINE BILIRUBIN NEGATIVE (NEGATIVE); URINE COLOR YELLOW; URINE GLUCOSE (UA) NEGATIVE (NEGATIVE); URINE KETONE NEGATIVE (NEGATIVE); URINE LEUK ESTERASE 1+ (NEGATIVE); URINE NITRITE NEGATIVE (NEGATIVE); URINE PROTEIN 3+ (NEGATIVE); URINE RBC 14 /uL (0-23.9); URINE UROBILINOGEN 0.2 mg/dL (0.2-1.0); URINE WBC 175 /uL (0-25.8)
[2024-12-25] MEDS ORDERED: CEPHALEXIN MONOHYDRATE 500 MG CAPSULE (UD) ONE (17:04)
[2024-12-25] MEDS: CEPHALEXIN MONOHYDRATE 500 MG CAPSULE (UD) PO ONE (17:09)
== END 2024-12-25 17:15 | disposition home or self-care (01) ==
LOC: JER 13:46
DX: J10.1 Influenza due to other identified influenza virus with other respiratory manifestations (principal); N39.0 Urinary tract infection, site not specified; R53.81 Other malaise; R35.0 Frequency of micturition; R30.9 Painful micturition, unspecified; R39.11 Hesitancy of micturition; R05.9 Cough, unspecified; R09.81 Nasal congestion; R07.89 Other chest pain; I10 Essential (primary) hypertension
CPT/HCPCS: 0241U-QW; 36415; 71045-TC-FY; 80053; 81003; 82803; 83735; 84484; 85025; 85610; 85730; 86850; 86900; 86901; 87086; 93005; 93010; 99285-25

== ENCOUNTER 2025-01-11 11:58 | Emergency (ER) | payer MEDICARE, OTHER ==
[2025-01-11 12:09] VITALS: BMI 31.2
[2025-01-11] MEDS ORDERED: ACETAMINOPHEN INJECTION 100 ML ONE (14:59)
[2025-01-11] MEDS: ACETAMINOPHEN 1000 MG/100 ML BAG IVPB ONE (15:07)
[2025-01-11 15:19] LABS: ABSOLUTE IMMATURE GRANULOCYTES 0.02 x10^3/uL (0.0-0.031); BASOPHILS # 0.12 x10^3/uL (0.01-0.08); EOSINOPHIL % 17.5 % (0.7-5.8); EOSINOPHILS # 1.30 x10^3/uL (0.04-0.36); MCHC 31.4 g/dl (32.2-35.5); MEAN CELL VOLUME 84.3 fl (79.4-94.8); MEAN PLT VOLUME 10.4 fl (9.4-12.3); MONOCYTE # 0.46 x10^3/uL (0.24-0.86); MONOCYTE % 6.2 % (4.7-12.5); RDW 12.8 % (12.4-16.6)
[2025-01-11 15:55] VITALS: BP 152/57; PULSE 63; RESP 20; TEMP 97.9
[2025-01-11 16:32] LABS: EPI CELLS 31 /uL (0-25.1); HYALINE CASTS 4 /uL (0-3.1); URINE APPEARANCE CLEAR; URINE BACTERIA 214 /uL (0-1359); URINE BILIRUBIN NEGATIVE (NEGATIVE); URINE COLOR YELLOW; URINE GLUCOSE (UA) NEGATIVE (NEGATIVE); URINE KETONE NEGATIVE (NEGATIVE); URINE LEUK ESTERASE 1+ (NEGATIVE); URINE NITRITE NEGATIVE (NEGATIVE); URINE PROTEIN 3+ (NEGATIVE); URINE RBC 22 /uL (0-23.9); URINE UROBILINOGEN 0.2 mg/dL (0.2-1.0); URINE WBC 462 /uL (0-25.8)
[2025-01-11] MEDS ORDERED: CEFTRIAXONE 1 GM/50 ML BAG ONE (16:44)
[2025-01-11 16:49] LABS: GLUCOSE,RANDOM 145.0 mg/dL (74-106)
[2025-01-11 16:50] LABS: CO2 24.0 mmol/L (21-32)
[2025-01-11 16:53] LABS: CREATININE 0.8 mg/dL (0.55-1.3); SGOT/AST 15.0 U/L (15-37); SGPT/ALT 15.0 U/L (13-61)
[2025-01-11 16:55] LABS: TOT PROT 6.5 g/dl (6.4-8.2)
[2025-01-11 16:56] LABS: ALK PHOS 92.0 U/L (45-117)
[2025-01-11 17:53] LABS: HIV INTERPRETATION NEGATIVE (NEGATIVE)
[2025-01-11 17:54] LABS: HCV DIAGNOSTIC IN-HOUSE W/RFLX NON-REACTIVE (NONREACTIVE)
== END 2025-01-11 17:59 | disposition home or self-care (01) ==
LOC: JER 11:58
PROC: 3E033NZ Introduction of Analgesics, Hypnotics, Sedatives into Peripheral Vein, Percutaneous Approach (ICD-10-PCS; principal; 2025-01-11)
PROC: 3E03329 Introduction of Other Anti-infective into Peripheral Vein, Percutaneous Approach (ICD-10-PCS; 2025-01-11)
DX: N39.0 Urinary tract infection, site not specified (principal); R10.12 Left upper quadrant pain; R35.0 Frequency of micturition; R31.9 Hematuria, unspecified; R53.1 Weakness; R30.9 Painful micturition, unspecified
CPT/HCPCS: 36415; 74176-TC; 80053; 81003; 83605; 83690; 84484; 85025; 86803; 87086; 87389; 93005; 93010; 99285-25

== ENCOUNTER 2025-03-11 12:37 | Emergency (ER) | payer MEDICARE, OTHER ==
[2025-03-11 12:44] VITALS: BP 172/78; PULSE 80; RESP 20; TEMP 98.2; BMI 27.3
[2025-03-11] MEDS ORDERED: ACETAMINOPHEN 325 MG TABLET (FP) ONE (14:53)
[2025-03-11] MEDS ORDERED: ALBUTEROL SO4 0.083% IH SOL 2.5 MG/3 ML VIAL.NEB. NEB ONE (14:53)
[2025-03-11] MEDS ORDERED: ONDANSETRON 4 MG/2 ML VIAL ONE (14:55)
[2025-03-11] MEDS: SODIUM CHLORIDE 0.9% 500 ML INFUS.BAG IV ONE (15:03)
[2025-03-11] MEDS: ACETAMINOPHEN 325 MG TABLET (FP) PO ONE (15:04)
[2025-03-11] MEDS: ONDANSETRON 4 MG/2 ML VIAL IVPUSH ONE (15:04)
[2025-03-11] MEDS: ALBUTEROL SULFATE 0.021% (0.63 MG/3 ML) VIAL.NEB NEB ONE (15:04)
[2025-03-11] MEDS: ACETAMINOPHEN 1000 MG/100 ML BAG IVPB ONE (15:04)
[2025-03-11 15:05] LABS: ABSOLUTE IMMATURE GRANULOCYTES 0.03 x10^3/uL (0.0-0.031); BASOPHILS # 0.10 x10^3/uL (0.01-0.08); EOSINOPHIL % 16.2 % (0.7-5.8); EOSINOPHILS # 1.07 x10^3/uL (0.04-0.36); MCHC 31.8 g/dl (32.2-35.5); MEAN CELL VOLUME 85.0 fl (79.4-94.8); MEAN PLT VOLUME 10.3 fl (9.4-12.3); MONOCYTE # 0.45 x10^3/uL (0.24-0.86); MONOCYTE % 6.8 % (4.7-12.5); RDW 13.2 % (12.4-16.6)
[2025-03-11 15:21] LABS: GLUCOSE,RANDOM 113.0 mg/dL (74-106); TOT PROT 6.5 g/dl (6.4-8.2)
[2025-03-11 15:22] LABS: CO2 20.0 mmol/L (21-32)
[2025-03-11 15:24] LABS: ALK PHOS 81.0 U/L (40-150)
[2025-03-11 15:27] LABS: CREATININE 1.08 mg/dL (0.55-1.3); SGOT/AST 21.0 U/L (5-34); SGPT/ALT 8.0 U/L (0-55)
[2025-03-11 15:38] LABS: EPI CELLS >36 /uL (0-25.1); HYALINE CASTS 7 /uL (0-3.1); URINE APPEARANCE CLOUDY; URINE BACTERIA 843 /uL (0-1359); URINE BILIRUBIN NEGATIVE (NEGATIVE); URINE COLOR YELLOW; URINE GLUCOSE (UA) NEGATIVE (NEGATIVE); URINE KETONE NEGATIVE (NEGATIVE); URINE LEUK ESTERASE 2+ (NEGATIVE); URINE NITRITE NEGATIVE (NEGATIVE); URINE PROTEIN 3+ (NEGATIVE); URINE RBC 27 /uL (0-23.9); URINE UROBILINOGEN 0.2 mg/dL (0.2-1.0); URINE WBC 540 /uL (0-25.8)
[2025-03-11 15:47] LABS: HCV DIAGNOSTIC IN-HOUSE W/RFLX NON-REACTIVE (NONREACTIVE)
[2025-03-11 15:48] LABS: HIV INTERPRETATION NEGATIVE (NEGATIVE)
[2025-03-11 15:48] LABS: INR 1.04 (0.83-1.09); PROTHROMBIN TIME (PATIENT) 11.3 SEC (9.7-13.0)
[2025-03-11 15:51] LABS: ACTIVATED PTT 30.5 SECONDS (25.2-36.5)
== END 2025-03-11 16:50 | disposition home or self-care (01) ==
LOC: JER 12:37
PROC: 3E0F7GC Introduction of Other Therapeutic Substance into Respiratory Tract, Via Natural or Artificial Opening (ICD-10-PCS; principal; 2025-03-11)
DX: N39.0 Urinary tract infection, site not specified (principal); R09.81 Nasal congestion; R05.9 Cough, unspecified; R10.30 Lower abdominal pain, unspecified; J02.9 Acute pharyngitis, unspecified; R51.9 Headache, unspecified; R30.0 Dysuria; R11.0 Nausea; R04.0 Epistaxis; H92.09 Otalgia, unspecified ear; R94.31 Abnormal electrocardiogram [ECG] [EKG]
CPT/HCPCS: 36415; 71045-TC-FY; 80053; 81003; 84484; 85025; 85610; 85730; 86803; 87086; 87389; 87637-QW; 87651; 87899; 93005; 93010; 94640; 99285-25

== ENCOUNTER 2025-03-29 13:23 | Emergency (ER) | payer MEDICARE, OTHER ==
[2025-03-29 13:35] VITALS: RESP 18; TEMP 98.1; BMI 27.9
[2025-03-29] MEDS: ALBUTEROL SO4 2.5/IPRATROPIUM 0.5 INH SOL 3 ML VIAL.NEB. NEB ONE ×2 (15:04→15:55)
[2025-03-29 15:05] LABS: ABSOLUTE IMMATURE GRANULOCYTES 0.07 x10^3/uL (0.0-0.031); BASOPHILS # 0.07 x10^3/uL (0.01-0.08); EOSINOPHIL % 10.8 % (0.7-5.8); EOSINOPHILS # 0.99 x10^3/uL (0.04-0.36); MCHC 32.4 g/dl (32.2-35.5); MEAN CELL VOLUME 83.2 fl (79.4-94.8); MEAN PLT VOLUME 10.6 fl (9.4-12.3); MONOCYTE # 0.51 x10^3/uL (0.24-0.86); MONOCYTE % 5.6 % (4.7-12.5); RDW 13.2 % (12.4-16.6)
[2025-03-29] MEDS ORDERED: ALBUTEROL SO4 2.5/IPRATROPIUM 0.5 INH SOL 3 ML VIAL.NEB. NEB ONE ×2 (15:05→15:44)
[2025-03-29 15:21] LABS: GLUCOSE,RANDOM 163.0 mg/dL (74-106)
[2025-03-29 15:22] LABS: TOT PROT 6.3 g/dl (6.4-8.2)
[2025-03-29 15:23] LABS: CO2 23.0 mmol/L (21-32)
[2025-03-29 15:24] LABS: ALK PHOS 95.0 U/L (40-150)
[2025-03-29 15:27] LABS: CREATININE 0.78 mg/dL (0.55-1.3); SGOT/AST 23.0 U/L (5-34); SGPT/ALT 11.0 U/L (0-55)
[2025-03-29 15:47] LABS: HCV DIAGNOSTIC IN-HOUSE W/RFLX NON-REACTIVE (NONREACTIVE)
[2025-03-29 15:49] LABS: HIV INTERPRETATION NEGATIVE (NEGATIVE)
[2025-03-29 17:34] LABS: EPI CELLS 23 /uL (0-25.1); HYALINE CASTS 0 /uL (0-3.1); URINE APPEARANCE CLEAR; URINE BACTERIA 484 /uL (0-1359); URINE BILIRUBIN NEGATIVE (NEGATIVE); URINE COLOR YELLOW; URINE GLUCOSE (UA) TRACE (NEGATIVE); URINE KETONE NEGATIVE (NEGATIVE); URINE LEUK ESTERASE 1+ (NEGATIVE); URINE NITRITE NEGATIVE (NEGATIVE); URINE PROTEIN 3+ (NEGATIVE); URINE RBC 18 /uL (0-23.9); URINE UROBILINOGEN 0.2 mg/dL (0.2-1.0); URINE WBC 91 /uL (0-25.8)
[2025-03-29 18:47] VITALS: BP 162/86; PULSE 84
== END 2025-03-29 18:46 | disposition home or self-care (01) ==
LOC: JER 13:23
PROC: 3E0F7GC Introduction of Other Therapeutic Substance into Respiratory Tract, Via Natural or Artificial Opening (ICD-10-PCS; principal; 2025-03-29)
PROC: 3E0F7GC Introduction of Other Therapeutic Substance into Respiratory Tract, Via Natural or Artificial Opening (ICD-10-PCS; 2025-03-29)
DX: J45.909 Unspecified asthma, uncomplicated (principal); R06.02 Shortness of breath; R05.9 Cough, unspecified; R09.3 Abnormal sputum
CPT/HCPCS: 36415; 71045-TC-FY; 71046-TC-FY; 80053; 81003; 84484; 85025; 86803; 87086; 87389; 87637-QW; 93005; 93010; 94640; 99285-25